=== PATIENT | female | born 1995 | race Caucasian/White ===

== ENCOUNTER 2020-09-13 09:49 | Outpatient (REF) | payer OTHER, SELFPAY ==
[2020-09-13 11:39] LABS: MANUAL DIFF FLAG NO
[2020-09-13 12:02] LABS: Basophils Percent Auto 0.4 % (0-2); Eosinophils Absolute Auto 0.1 X10*3/uL (0.0-0.4); Eosinophils Percent Auto 1.3 % (0-4); Hematocrit 39.4 % (37-47); Hemoglobin 12.7 g/dl (12.0-16.0); Imm Gran Abs Auto 0.02 X10*3/uL (0.00-0.03); Imm Gran Pct Auto 0.2 % (0.0-0.4); Lymphocytes Absolute Auto 3.4 X10*3/uL (1.2-4.9); Lymphocytes Percent Auto 38.1 % (20-40); Mean Corpuscular HGB Conc 32.2 g/dl (31.0-35.0); Mean Corpuscular Hemoglobin 28.5 pg (27.0-33.0); Mean Corpuscular Volume 88.3 fL (80-98); Mean Platelet Volume 10.4 fL (9.4-12.3); Monocytes Absolute Auto 0.6 X10*3/uL (0.1-1.2); Monocytes Percent Auto 6.7 % (2-11); Neutrophils Absolute Auto 4.7 X10*3/uL (2.0-8.3); Neutrophils Percent Auto 53.3 % (45-73); Platelet Count 364 X10*3/uL (160-400); Red Blood Count 4.46 X10*6/uL (4.20-5.50); Red Cell Distribution Width 13.2 % (11.0-16.0); White Blood Count 8.9 X10*3/uL (4.8-10.8)
[2020-09-13 12:24] LABS: TSH reflex Free T4 1.46 uIU/mL (0.32-4.0); Vitamin D 25-OH Total 31.1 ng/mL (>30)
[2020-09-13 12:41] LABS: Alanine Aminotransferase 15 U/L (0-31); Anion Gap 13 (12-20); Aspartate Amino Transferase 16 U/L (5-31); Blood Urea Nitrogen 11 mg/dL (9-16); Calcium 9.5 mg/dL (8.4-10.2); Carbon Dioxide 26 mmol/L (22-29); Chloride 105 mmol/L (96-108); Cholesterol 167 mg/dL; Estimated Glomerular Filt Rate > 60; Glucose Fasting 106 mg/dL (60-99); HDL Cholesterol 43 mg/dL; LDL Cholesterol Calculated 92 mg/dl; Potassium 4.7 mmol/L (3.3-5.1); Sodium 139 mmol/L (135-145); Triglycerides 163 mg/dL
== END 2020-09-13 09:50 | disposition home or self-care (01) ==
LOC: HO.HMGCLDS 09:49
PROVIDERS: PCP Internal Medicine; Visit Provider Internal Medicine
DX: Z00.01 Encounter for general adult medical examination with abnormal findings (principal); R12 Heartburn; E66.01 Morbid (severe) obesity due to excess calories; R41.840 Attention and concentration deficit; F41.8 Other specified anxiety disorders; E55.9 Vitamin D deficiency, unspecified; I10 Essential (primary) hypertension
CPT/HCPCS: 36415; 80048; 80061; 82306; 84443; 84450; 84460; 85025

== ENCOUNTER 2020-11-17 11:22 | Outpatient (REF) | payer OTHER, SELFPAY ==
--- NOTE | ~2020-11-17 | US_ITS ---
EXAMINATION: US SOFT TISSUE OF THE NECK CLINICAL INFORMATION: Localized mass/lump, left posterior neck. COMPARISON: None TECHNIQUE: Linear transducer grayscale and color Doppler examination of the area behind left ear, just under hairline. FINDINGS: In the region of the patient's palpable findings there is a subcutaneous lymph node measuring 1.3 x 1.3 x 0.4 cm with a normal fatty hilum. No additional soft tissue mass or fluid collection. No inflammatory change. US/US soft tiss head and/or neck IMPRESSION: Minimally prominent lymph node in the region of the patient's palpable findings.
== END 2020-11-17 11:23 | disposition home or self-care (01) ==
LOC: HO.HMGCX 11:22
PROVIDERS: PCP Internal Medicine; Visit Provider Internal Medicine
DX: R22.1 Localized swelling, mass and lump, neck (principal)
CPT/HCPCS: 76536

== ENCOUNTER 2021-05-08 09:50 | Outpatient (REF) | payer OTHER, SELFPAY ==
[2021-05-08 15:51] LABS: CT PCR NOT DETECTED (Not Detect.); NG PCR NOT DETECTED (Not Detect.)
[2021-05-09 15:48] LABS: BV Int Neg Control Negative (Negative); BV Int Pos Control Positive (Positive)
== END 2021-05-08 09:51 | disposition home or self-care (01) ==
LOC: HO.LAB 09:50
PROVIDERS: Visit Provider Advanced Practice Midwife
DX: Z01.419 Encounter for gynecological examination (general) (routine) without abnormal findings (principal); E66.01 Morbid (severe) obesity due to excess calories; N92.0 Excessive and frequent menstruation with regular cycle; Z20.2 Contact with and (suspected) exposure to infections with a predominantly sexual mode of transmission; Z79.899 Other long term (current) drug therapy
CPT/HCPCS: 87480; 87491; 87510; 87591; 87660; 88142

== ENCOUNTER 2022-07-13 08:18 | Outpatient (AMB) | payer OTHER, SELFPAY ==
--- NOTE | 2022-07-13 08:22 | MHC.PC.OV ---
Vital Signs 07/13/22 08:24 Height 5 ft 2 in Weight 258 lb 0.4 oz BMI 47.2 BP 122/80 Blood Pressure Location Lt brachial Position Sitting Pulse 69 Pulse Source Pulse Oximeter Temp 97.0 F Temp Source Skin Pulse Oximetry (%) 100 Oxygen Delivery Method Room Air Intake Visit Reasons: Physical exam Intake Note: Patient is here today for a physical. 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 Has chronic heartburn, takes famotidine, which has been helping.. Has history of mild intermittent asthma, has not had any flare-ups for the last several years now, not on any inhaler. She needs screening for tuberculosis for her work. Denies any history of TB in the past no exposure to anybody with tuberculosis. Complains of disturbed sleep rhythm, frequently wakes up, occasion has item go to sleep, has been told that she snores a lot and wakes up not feeling rested [facility] Medical History Annual visit for general adult medical examination with abnormal findings Chronic heartburn Depression with anxiety Difficulty concentrating Disturbed sleep rhythm Excessive daytime sleepiness Heavy menstrual bleeding History of depression Impaired fasting glucose Intermittent palpitations Labial lesion Mass of left side of neck Mild intermittent asthma Morbid obesity Nocturnal cough Screening-pulmonary TB Severe menstrual cramps Vitamin D deficiency Surgical History History of wisdom tooth extraction Family History Paternal Grandmother Diabetes mellitus Hypertension Maternal Grandfather Bronchial asthma Maternal Grandmother Colon cancer Paternal Aunt No problems noted. Mother Depression Mental health disorder Social History Housing: Apartment Alcohol intake: former Patient Tobacco Use Status: Never used Tobacco e-Cigarette/Vaping Use: Never Used Second Hand Smoke Exposure: No Substance Use Type: Marijuana service: No Current occupational status: unemployed Cognitive needs: No Hearing needs: No Vision needs: No Female Reproductive History Menstrual Age of Menarche: 10 Questionnaire PHQ-9 Over the last 2 weeks, how often have you been bothered by any of the following problems? 1. Little interest or pleasure in doing things: more than half the days 2. Feeling down, depressed, or hopeless: several days 3. Trouble falling or staying asleep, or sleeping too much: more than half the days 4. Feeling tired or having little energy: more than half the days 5. Poor appetite or overeating: more than half the days 6. Feeling bad about yourself - or that you are a failure or have let yourself or your family down: more than half the days 7. Trouble concentrating on things, such as reading the newspaper or watching television: not at all 8. Moving or speaking so slowly that other people could have noticed. Or the opposite - being so fidgety or restless that you have been moving around a lot more than usual: several days 9. 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 Andrew Hernandes, Valencia Mejia, Raghav Licea and colleagues, with an educational mhiaela from [employer]. Thrive Questionnaire Date Thrive assessed: 07/13/22 I am a: Patient What is your living situation today?: I have a steady place to live Within the past 12 months, did the food you bought not last and you didn't have the money to get more?: Never true Within the past 12 months, did you worry whether your food would run out before you got money to buy more?: Never true Do you have trouble paying for medicines?: No Do you have trouble getting transportation to medical appointments?: No Do you have trouble paying your heating and electricity bill?: No Do you have trouble taking care of your child, family member or friend?: No Do you have trouble with day-to-day activities such as bathing, preparing meals, shopping, managing finances, etc.?: No Are you currently unemployed and looking for a job?: Yes Are you interested in more education?: Yes AUDIT C Alcohol Use Questionnaire (AUDIT-C) 1. How often do you have a drink containing alcohol?: Never 3. How often do you have six or more drinks on one occasion?: Never Total Score: 0 KIARA-7 AMB Questionnaire KIARA-7 Date KIARA - 7 assessed: 07/13/22 Feeling nervous, anxious, or on edge: 2 = More than half the days Not being able to stop or control worryin = More than half the days Worrying too much about different things: 2 = More than half the days Trouble relaxin = More than half the days Being so restless that it is hard to sit still: 2 = More than half the days Becoming easily annoyed or irritable: 2 = More than half the days Feeling afraid as if something awful might happen: 2 = More than half the days Total KIRAA-7 score (0-4 normal; 5-9 mild; 10-14 moderate; 15-21 severe): 14 Source: Developed by Drs. Andrew Hernandes, Valencia Mejia, Raghav Licea and colleagues, with an educational mihaela from [employer]. KIARA-7 Assessment Billing KIARA-7 Assessment Tool: KIARA-7 Assessment 17911 ACT Questionnaire In the past 4 weeks, how much of the time did your asthma keep you from getting as much done at work, school or at home?: A little of the time During the past 4 weeks, how often have you had shortness of breath?: 1-2 times a week During the past 4 weeks, how often did your asthma symptoms wake you up at night or earlier than usual in the morning?: Once or twice per week During the past 4 weeks, how often have you had to use your rescue inhaler or nebulizer medication?: 2-3 times a week How would you rate your asthma control during the past 4 weeks?: Somewhat controlled Score: 18 Review of Systems Const Denies body aches, Denies fatigue, Denies fever(s), Denies headache(s) and Denies weakness Eyes Reports blurry vision, Denies eye discharge, Denies itchy eyes and Reports requires corrective lenses ENT Denies vertigo, Denies dizziness, Denies headache(s), Denies nasal congestion, Denies nasal discharge and Denies sore throat Card Denies chest pain, Denies lightheadedness, Denies palpitations and Denies dyspnea Resp Denies chest congestion, Denies cough, Denies dyspnea and Denies wheezing GI Denies abdominal pain, Denies melena, Denies bloating, Denies hematochezia, Denies change in bowel habits and Denies nausea Denies urinary frequency, Reports menorrhagia, Reports dysmenorrhea, Denies dysuria and Denies urinary urgency Musc Reports no additional complaints and Denies abnormal gait Skin/Breast Denies breast pain, Denies breast mass and Denies rash Neuro Denies abnormal gait, Denies vertigo, Denies dizziness, Denies headache(s), Denies focal weakness, Denies seizure-like activity and Denies weakness Psych Reports no additional complaints Endo Denies fatigue, Denies polydipsia, Denies polyuria and Denies palpitations Rolan/Lymph Denies easy bruising Aller/Immun Denies itchy eyes, Denies seasonal rhinorrhea and Denies wheezing Physical exam (Primary Care) Vital Signs: Last Vital Signs Temp 97.0 F 07/13/22 08:24 Pulse 69 07/13/22 08:24 BP 122/80 07/13/22 08:24 Pulse Ox 100 07/13/22 08:24 Oxygen Delivery Method Room Air 07/13/22 08:24 BMI result Body Mass Index 47.2 BMI Assessment/Plan discussion: High BMI High, discussed plan: lifestyle, weight reduction and physical activity Tobacco/Smoking Status: Tobacco use Status Tobacco use date assessed 07/13/22 07/13/22 08:25 Patient Tobacco Use Status Never used Tobacco 07/13/22 08:22 e-Cigarette/Vaping Use Never Used 07/13/22 08:22 PHQ-9: PHQ-9 Score PHQ-9: Total score 16 07/13/22 09:51 Depression Screening Interpretation: Positive Depression Screening Follow-up: Existing condition, Community Mental Health Worker F/U and Declines treatment (Does not want diet take any medications at present time and declines counseling) Thrive Assessment: Date of Thrive Assessment Date Thrive assessed 07/13/22 07/13/22 08:25 Const Other: Obese, alert, oriented x3, no acute cardiorespiratory distress, ambulatory with normal gait General: cooperative, comfortable and no acute distress Nutritional Appearance: obese morbidly obese Orientation/consciousness: patient oriented x3 [facility] Head: Yes normocephalic Ears: hearing grossly normal bilaterally, external ears normal, TM's normal bilaterally and EAC's normal General nose exam: Normal external nose present and No nasal discharge present Face and sinus: Yes face symmetric Mouth: Normal oral and palatal mucosa present, tongue normal, oropharynx normal and moist mucous membranes Eyes General: appearance normal, both eyes and all related structures Pupils: Equal, round and reactive pupils present EOM: EOMs intact bilaterally Chest Chest palpation & inspection: normal inspection of the chest and normal palpation of entire chest wall Breast/axilla palpation: normal palpation of the breasts and normal palpation of the axillae Resp Effort & Inspection: normal respiratory effort and able to speak in complete sentences Auscultation: clear to auscultation bilaterally Cardio Rate: regular rate Rhythm: regular rhythm Heart sounds: S1 normal heart sound present and S2 normal heart sound present GI Inspection: Yes Abdominal panniculus present and Yes obesity Palpation (GI): Soft to palpation, nontender, no guarding and no masses Auscultation: normal bowel sounds General: Yes no CVA tenderness and Yes deferred (Currently being seen by ELVIRA [place]) Back/Spine/Pelvis Back: no CVA tenderness and No back tenderness Skin General skin exam: no rashes or lesions noted Neuro General: patient oriented x3, gait normal, tone normal, moves all extremities and Normal light touch and pain sensation Cranial nerves: Yes Equal, round and reactive pupils present Cognition (Neuro): normal cognition Gait exam (Neuro): Normal gait present Extrem General: Yes normal to inspection, Yes full ROM, Yes no joint enlargement, Yes no clubbing, cyanosis or edema and Yes normal gait Psych Appearance: grossly normal and well kempt Mental Status: mental status grossly normal Speech and movement: Normal speech and movement present Affect: normal affect Attitude: cooperative Immunizations Boostrix Tdap Performing Provider: Faby Lam MD Administered by: NATHANIEL Ho on 07/13/22 09:51 Dose Route Admin Location Lot Number Expiration Date 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 Recommended focusing on improving your health instead of dieting. : Eat Mediterranean diet, limit foods high in fat, sugar, and calories, eat slowly, pay attention to portion sizes, plan your meals ahead of time, start regular physical activity 150 minutes of moderate intensity exercise or 90 minutes/week of vigorous exercise and increase water intake. (3) Impaired fasting glucose: Code(s): R73.01 - Impaired fasting glucose Plan: Will check fasting blood sugar level (4) Annual visit for general adult medical examination with abnormal findings: Code(s): Z00.01 - Encounter for general adult medical examination with abnormal findings Plan: Will check appropriate labs. Recommended dental visit every 6 months and regular eye exams, at least every 2 years. Take adequate calcium in diet and vitamin-D 3 at 2000 IU per cap once a day, in addition to weight-bearing exercises to help maintain good muscle tone and weight control. Instructed to do self-breast exam, and recommended to get yearly mammogram, starting at age 40. Immunization information provided: Yearly flu vaccine, shingles vaccine starting at age 50, at age 65 to start getting Prevnar 13 followed 1 year later by Pneumovax 23. Colonoscopy (5) Intermittent palpitations: Code(s): R00.2 - Palpitations (6) Screening-pulmonary TB: Code(s): Z11.1 - Encounter for screening for respiratory tuberculosis Plan: T spot ordered (7) Nocturnal cough: Code(s): R05.8 - Other specified cough Plan: Likely heartburn, advised to take famotidine at night before bed, avoid triggers for heartburn such as and hematometra saw scar fried foods crease to foods, eat a light supper, do not lie down right away after eating (8) Mild intermittent asthma: Code(s): J45.20 - Mild intermittent asthma, uncomplicated Plan: Has not had any flare-ups of her asthma for several years now. (9) Excessive daytime sleepiness: Code(s): G47.19 - Other hypersomnia Plan: Referral for evaluation of obstructive sleep apnea. (10) Disturbed sleep rhythm: Code(s): G47.20 - Circadian rhythm sleep disorder, unspecified type Plan: Referred to sleep clinic (11) Depression with anxiety: Code(s): F41.8 - Other specified anxiety disorders Plan: Patient states that she has been dealing with this for a long time no does not want to start any medications or referral for counseling. Has tried them in the past which has not help, Orders: Orders Glucose Fasting 07/13/22 R73.01 - Impaired fasting glucose, R12 - Heartburn, E66.01 - Morbid (severe) obesity due to excess calories, Z00.01 - Encounter for general adult medical examination with abnormal findings Hemoglobin A1c 07/13/22 R73.01 - Impaired fasting glucose, R12 - Heartburn, E66.01 - Morbid (severe) obesity due to excess calories, Z00.01 - Encounter for general adult medical examination with abnormal findings Lipid Panel 07/13/22 R73.01 - Impaired fasting glucose, R12 - Heartburn, E66.01 - Morbid (severe) obesity due to excess calories, Z00.01 - Encounter for general adult medical examination with abnormal findings Vitamin D 25-OH Total 07/13/22 R73.01 - Impaired fasting glucose, R12 - Heartburn, E66.01 - Morbid (severe) obesity due to excess calories, Z00.01 - Encounter for general adult medical examination with abnormal findings TSH reflex Free T4 07/13/22 R00.2 - Palpitations, Z00.01 - Encounter for general adult medical examination with abnormal findings Complete Blood Count Auto Diff 07/13/22 R00.2 - Palpitations, Z00.01 - Encounter for general adult medical examination with abnormal findings T Spot TB 07/13/22 Z11.1 - Encounter for screening for respiratory tuberculosis TDaP Immunization 07/13/22 Z23 - Encounter for immunization Referrals Sleep Medicine Referral R05.8 - Other specified cough, G47.19 - Other hypersomnia, G47.20 - Circadian rhythm sleep disorder, unspecified type Medications: Refilled famotidine 40 mg PO DAILY 30 tabs 2RF R12 - Heartburn Coding Level of Care Code Est Pt Prev Care 18-39y(53230) Diagnoses Chronic heartburn R12 Morbid obesity E66.01 Impaired fasting glucose R73.01 Annual visit for general adult medical examination with abnormal findings Z00.01 Intermittent palpitations R00.2 Screening-pulmonary TB Z11.1 Nocturnal cough R05.8 Mild intermittent asthma J45.20 Excessive daytime sleepiness G47.19 Disturbed sleep rhythm G47.20 Depression with anxiety F41.8 Additional Codes KIARA-7 Assessment Billing - KIARA-7 Assessment Tool: KIARA-7 Assessment 02110 ([id number])
[2022-07-13 08:24] VITALS: BP 122/80; PULSE 69; TEMP 36.1; O2SAT 100; BMI 47.2
== END 2022-07-13 09:43 | disposition home or self-care (01) ==
LOC: HO.HMGC 08:18
PROVIDERS: PCP Internal Medicine; Visit Provider Internal Medicine
DX: Z00.01 Encounter for general adult medical examination with abnormal findings (principal); E66.01 Morbid (severe) obesity due to excess calories; J45.20 Mild intermittent asthma, uncomplicated; Z68.42 Body mass index [BMI] 45.0-49.9, adult; F41.8 Other specified anxiety disorders; R12 Heartburn; R73.01 Impaired fasting glucose; R00.2 Palpitations; R05.8 Other specified cough; G47.19 Other hypersomnia; Z11.1 Encounter for screening for respiratory tuberculosis; G47.20 Circadian rhythm sleep disorder, unspecified type; Z23 Encounter for immunization
CPT/HCPCS: 90471; 90715; 99395

== ENCOUNTER 2022-07-13 09:46 | Outpatient (REF) | payer OTHER, SELFPAY ==
[2022-07-13 11:42] LABS: MANUAL DIFF FLAG NO
[2022-07-13 11:55] LABS: Basophils Percent Auto 0.5 % (0-2); Eosinophils Absolute Auto 0.1 X10*3/uL (0.0-0.4); Hemoglobin 12.8 g/dl (12.0-16.0); Imm Gran Abs Auto 0.01 X10*3/uL (0.00-0.03); Imm Gran Pct Auto 0.1 % (0.0-0.4); Lymphocytes Absolute Auto 2.8 X10*3/uL (1.2-4.9); Lymphocytes Percent Auto 38.6 % (20-40); Mean Corpuscular HGB Conc 32.8 g/dl (31.0-35.0); Mean Corpuscular Hemoglobin 28.3 pg (27.0-33.0); Mean Corpuscular Volume 86.1 fL (80.0-98.0); Mean Platelet Volume 10.4 fL (9.4-12.3); Monocytes Absolute Auto 0.5 X10*3/uL (0.1-1.2); Monocytes Percent Auto 6.8 % (2-11); Neutrophils Absolute Auto 3.9 x10*3/uL (2.0-8.3); Platelet Count 346 X10*3/uL (160-400); Red Blood Count 4.53 X10*6/uL (4.20-5.50); Red Cell Distribution Width 13.3 % (11.0-16.0); White Blood Count 7.4 X10*3/uL (4.8-10.8)
[2022-07-13 12:09] LABS: Estimated Average Glucose 117 mg/dL; Hemoglobin A1c % 5.7 %
[2022-07-13 12:27] LABS: Cholesterol 162 mg/dL; Glucose Fasting 111 mg/dL (60-99); HDL Cholesterol 49 mg/dL; LDL Cholesterol Calculated 91 mg/dl; TSH reflex Free T4 1.77 uIU/mL (0.32-4.0); Triglycerides 111 mg/dL; Vitamin D 25-OH Total 27.1 ng/mL (>30)
[2022-07-15 22:43] LABS: TS Negative Control Passed; TS Panel A 0; TS Panel B 0; TS Positive Control Passed; TSpotTB Negative (Negative)
== END 2022-07-13 09:47 | disposition home or self-care (01) ==
LOC: HO.HMGCLDS 09:46
PROVIDERS: PCP Internal Medicine; Visit Provider Internal Medicine
DX: Z00.01 Encounter for general adult medical examination with abnormal findings (principal); R73.01 Impaired fasting glucose; R12 Heartburn; E66.01 Morbid (severe) obesity due to excess calories; R00.2 Palpitations; Z11.1 Encounter for screening for respiratory tuberculosis
CPT/HCPCS: 36415; 80061; 82306; 82947; 83036; 84443; 85025; 86481

== ENCOUNTER → 2022-09-11 07:44 | Outpatient (BNVA) | payer OTHER, SELFPAY | PROVIDERS: PCP Internal Medicine; Visit Provider Nurse Practitioner Family | DX: R06.83 Snoring (principal); G47.20 Circadian rhythm sleep disorder, unspecified type; G47.19 Other hypersomnia; E66.01 Morbid (severe) obesity due to excess calories; Z68.42 Body mass index [BMI] 45.0-49.9, adult | CPT/HCPCS: 99202 ==

== ENCOUNTER → 2022-10-11 10:48 | Outpatient (REF) | payer OTHER, SELFPAY | LOC: HO.SL 10:48 | PROVIDERS: PCP Internal Medicine; Visit Provider Nurse Practitioner Family | DX: G47.19 Other hypersomnia (principal); R06.83 Snoring; E66.01 Morbid (severe) obesity due to excess calories | CPT/HCPCS: 95806 ==

== ENCOUNTER → 2022-10-11 11:01 | Outpatient (BNV) | payer OTHER, SELFPAY | PROVIDERS: PCP Internal Medicine; Visit Provider Psychiatry & Neurology Neurology | DX: R06.83 Snoring (principal) | CPT/HCPCS: 95806 ==

== ENCOUNTER 2023-01-15 11:45 | Outpatient (AMB) | payer OTHER, SELFPAY ==
[2023-01-15 12:10] VITALS: BP 100/60; PULSE 68; O2SAT 100; BMI 46.3
--- NOTE | 2023-01-15 12:10 | MHC.PC.OV ---
Vital Signs 01/15/23 12:10 Height 5 ft 2 in Weight 253 lb 6 oz BMI 46.3 BP 100/60 Blood Pressure Location Lt brachial Position Sitting Pulse 68 Pulse Source Pulse Oximeter Pulse Oximetry (%) 100 Oxygen Delivery Method Room Air Intake Visit Reasons: Chest discomfort upon excerise Intake Note: pt says she gets sharp pain when she exercise and says it feels like she can not pull in enough air she says she can control her breathing , but the pain and discomfort is still there. Allergies No Known Allergies Allergy (Verified 03/13/23 11:06) Medication List - Last Reconciled 01/15/23 by Faby Lam MD cholecalciferol (vitamin D3) 125 mcg PO DAILY famotidine 40 mg PO DAILY Tobacco use date assessed: 01/15/23 Dental Screening Dental Screen Date: 01/15/23 Did you have a dental visit in the last 12 months?: Yes Did you have a dental problem in the last 6 months where you did not have access to dental care?: No Was dental information given to patient?: Patient has dentist HPI Chest discomfort upon excerise HPI Details 27-year-old lady here today complaining of sharp pains on her middle of her chest when she exercises , repeat like she has to catch her breath every time. No history of trauma or injury. Denies any accompanying headache or palpitation. She has mild intermittent asthma currently using only albuterol inhaler as needed for episodes of wheezing and bronchospasm. She also has been having intermittent episodes of heartburn. Currently taking famotidine 40 mg daily which has been controlling it. Complains of episodes of anhedonia and low mood. Has been wearing a lot lately which has been impacting her sleep. [facility] Medical History (Updated 01/15/23 @ 12:48 by Faby Lam MD) Chest wall pain, chronic Disturbed sleep rhythm Excessive daytime sleepiness Mild intermittent asthma Nocturnal cough Screening-pulmonary TB Intermittent palpitations Annual visit for general adult medical examination with abnormal findings Impaired fasting glucose Mass of left side of neck Labial lesion Severe menstrual cramps Heavy menstrual bleeding Chronic heartburn Morbid obesity Difficulty concentrating Depression with anxiety History of depression Vitamin D deficiency Surgical History History of wisdom tooth extraction Family History Paternal Grandmother Diabetes mellitus Hypertension Maternal Grandfather Bronchial asthma Maternal Grandmother Colon cancer Paternal Aunt No problems noted. Mother Depression Mental health disorder Social History (Updated 02/13/23 @ 08:19 by Rubi Davis CMA) Housing: Apartment Alcohol intake: former Patient Tobacco Use Status: Never used Tobacco e-Cigarette/Vaping Use: Never Used Second Hand Smoke Exposure: No Substance Use Type: Marijuana service: No Current occupational status: unemployed Cognitive needs: No Hearing needs: No Vision needs: No Female Reproductive History Menstrual Age of Menarche: 10 Questionnaire Thrive Questionnaire Date Thrive assessed: 07/13/22 KIARA-7 AMB Questionnaire KIARA-7 Date KIARA - 7 assessed: 07/13/22 Source: Developed by Drs. Andrew Hernandes, Valencia Mejia, Raghav Licea and colleagues, with an educational mihaela from [employer]. Review of Systems Const All systems reviewed & are unremarkable except as noted in HPI and below Physical exam (Primary Care) Vital Signs: Last Vital Signs Pulse 68 01/15/23 12:10 BP 100/60 01/15/23 12:10 Pulse Ox 100 01/15/23 12:10 Oxygen Delivery Method Room Air 01/15/23 12:10 BMI result Body Mass Index 46.3 Tobacco/Smoking Status: Tobacco use Status Tobacco use date assessed 01/15/23 01/15/23 12:17 Patient Tobacco Use Status Never used Tobacco 01/15/23 12:17 e-Cigarette/Vaping Use Never Used 01/15/23 12:17 Thrive Assessment: Date of Thrive Assessment Date Thrive assessed 07/13/22 01/15/23 12:17 Office Procedures Flu Questionnaire Does the patient have a severe egg allergy?: No Does the patient have severe life threatening allergies?: No Does the patient have a fever or illness today?: No Has the patient ever had Guillain-Lovilia Syndrome?: No Has the patient ever had any past reaction to a flu shot?: No Immunizations flu vacc [id number] 6mos up(PF) 60 mcg(15 mcgx4)/0.5 mL IM syringe Performing Provider: Faby Lam MD Performing Location: [facility] Administered by: Daniella Calvo CMA on 01/15/23 12:49 Dose Route Admin Location Dispensed Lot Number Expiration Date 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 VIS Given Date VIS Provided VIS Publication Date 01/15/23 Single Vaccine 20 Eligibility Eligibility Date Funding Source Not [facility] Eligible 01/15/23 Private Assessment and Plan Assessment & Plan (1) Depression with anxiety: Code(s): F41.8 - Other specified anxiety disorders Plan: Started on buspirone 5 mg 1 tablet 3 times a day. (2) Chest wall pain, chronic: Code(s): R07.89 - Other chest pain; G89.29 - Other chronic pain Plan: EKG done today showed normal sinus rhythm with no acute ST-T changes. Chest pain likely musculoskeletal in origin. (3) Chronic heartburn: Code(s): R12 - Heartburn Plan: Continue with famotidine, avoidance of triggers for heartburn (4) Needs flu shot: Code(s): Z23 - Encounter for immunization Plan: Flu vaccine given today Orders: Orders Influenza [id number] Immunization 01/15/23 Z23 - Encounter for immunization AMB EKG-In Office 01/15/23 R07.89 - Other chest pain, G89.29 - Other chronic pain, Z13.6 - Encounter for screening for cardiovascular disorders Medications: New diclofenac sodium 1% apply to single elbow, wrist or hand; for hand includes palm/fingers/back of hand 2 grams topical QID PRN 100 grams 0RF pain buspirone 5 mg PO TID 90 tabs 0RF F41.8 - Other specified anxiety disorders Refilled famotidine 40 mg PO DAILY 30 tabs 5RF R12 - Heartburn Coding Level of Care Code Est Pt Level 3 (51380) Diagnoses Depression with anxiety F41.8 Chest wall pain, chronic R07.89; G89.29 Chronic heartburn R12 Needs flu shot Z23
== END 2023-01-15 14:52 | disposition home or self-care (01) ==
PROVIDERS: PCP Internal Medicine; Visit Provider Internal Medicine
DX: Z23 Encounter for immunization (principal)
CPT/HCPCS: 90471; 90686

== ENCOUNTER 2023-02-13 08:12 | Outpatient (AMB) | payer OTHER, SELFPAY ==
--- NOTE | 2023-02-13 08:17 | A.OFFVIS_ITS ---
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 The home sleep study was inconclusive. Pt states that she could not sleep with the equipment, it kept falling, and she stayed awake all night. In lab sleep study ordered, but patient had anxiety attack and could not do the PSG sleep study. She is on buspirone 5 mg TID and her anxiety has been better. Pt states that she sleeps a little longer, 7-8 hrs. She will call to schedule for PSG sleep study. [facility] Medical History (Updated 01/15/23 @ 12:48 by Faby Lam MD) Chest wall pain, chronic Disturbed sleep rhythm Excessive daytime sleepiness Mild intermittent asthma Nocturnal cough Screening-pulmonary TB Intermittent palpitations Annual visit for general adult medical examination with abnormal findings Impaired fasting glucose Mass of left side of neck Labial lesion Severe menstrual cramps Heavy menstrual bleeding Chronic heartburn Morbid obesity Difficulty concentrating Depression with anxiety History of depression Vitamin D deficiency Surgical History History of wisdom tooth extraction Family History Paternal Grandmother Diabetes mellitus Hypertension Maternal Grandfather Bronchial asthma Maternal Grandmother Colon cancer Paternal Aunt No problems noted. Mother Depression Mental health disorder Social History (Updated 02/13/23 @ 08:19 by Rubi Davis CMA) Housing: Apartment Alcohol intake: former Patient Tobacco Use Status: Never used Tobacco e-Cigarette/Vaping Use: Never Used Second Hand Smoke Exposure: No Substance Use Type: Marijuana service: No Current occupational status: unemployed Cognitive needs: No Hearing needs: No Vision needs: No Female Reproductive History Menstrual Age of Menarche: 10 Review of Systems Const All systems reviewed & are unremarkable except as noted in HPI and below ENT Reports Normal hearing present Neuro Reports Normal hearing present Physical Exam Vital Signs: Last Vital Signs Pulse 75 02/13/23 08:19 BP 120/86 02/13/23 08:19 Pulse Ox 98 02/13/23 08:19 Oxygen Delivery Method Room Air 02/13/23 08:19 Const General: cooperative Nutritional Appearance: obese Orientation/consciousness: patient oriented x3 Limitations: no limitations Neck Neck: Yes full ROM and Yes supple Resp Effort & Inspection: normal respiratory effort and able to speak in complete sentences Neuro General: patient oriented x3, gait normal and moves all extremities Cranial nerves: Yes Bilaterally intact EOM present, Yes Normal facial strength present, Yes Midline tongue present, Yes Symmetric palate elevation present, Yes Normal hearing present, Yes Ability to bilaterally rotate head present and Yes Ability to bilaterally elevate shoulders present Cognition (Neuro): normal cognition Gait exam (Neuro): Normal gait present Motor exam (neuro): 5/5 motor strength present throughout, Pronator motor function not present and no tremor noted Psych Appearance: grossly normal Mental Status: mental status grossly normal Speech and movement: Normal speech and movement present Affect: normal affect Attitude: cooperative Assessment & Plan Assessment & Plan (1) Snoring: Code(s): R06.83 - Snoring (2) Disturbed sleep rhythm: Code(s): G47.20 - Circadian rhythm sleep disorder, unspecified type (3) Excessive daytime sleepiness: Code(s): G47.19 - Other hypersomnia (4) Morbid obesity: Code(s): E66.01 - Morbid (severe) obesity due to excess calories Plan Pt is advised to undergo in lab sleep study to assess for sleep apnea. Will f/u with pt after study to discuss results and appropriate treatment opti ons. Sleep hygiene education provided. Limit electronic use before bedtime and in the middle of night. Advised patient to limit caffeine intake after 2 pm. Try magnesium 400 mg q HS for muscle spasm. Wt reduction advised. Pt to call with any worsening concerns or questions. Coding Level of Care Code Est Pt Level 3 (52088) Diagnoses Snoring R06.83 Disturbed sleep rhythm G47.20 Excessive daytime sleepiness G47.19 Morbid obesity E66.01
[2023-02-13 08:19] VITALS: BP 120/86; PULSE 75; O2SAT 98
== END 2023-02-13 08:33 | disposition home or self-care (01) ==
PROVIDERS: PCP Internal Medicine; Visit Provider Nurse Practitioner Family
DX: R06.83 Snoring (principal); G47.20 Circadian rhythm sleep disorder, unspecified type; G47.19 Other hypersomnia; E66.01 Morbid (severe) obesity due to excess calories
CPT/HCPCS: 99213

== ENCOUNTER → 2023-02-13 08:12 | Outpatient (BNVA) | payer OTHER, SELFPAY | PROVIDERS: PCP Internal Medicine; Visit Provider Nurse Practitioner Family | DX: G47.20 Circadian rhythm sleep disorder, unspecified type (principal); R06.83 Snoring; G47.19 Other hypersomnia; E66.01 Morbid (severe) obesity due to excess calories | CPT/HCPCS: 99212 ==

== ENCOUNTER → 2023-03-05 20:30 | Outpatient (BNV) | payer OTHER, SELFPAY | PROVIDERS: PCP Internal Medicine; Visit Provider Psychiatry & Neurology Neurology | DX: R06.83 Snoring (principal) | CPT/HCPCS: 95810 ==

== ENCOUNTER → 2023-03-05 20:30 | Outpatient (REF) | payer OTHER, SELFPAY | LOC: HO.SL 20:30 | PROVIDERS: PCP Internal Medicine; Visit Provider Nurse Practitioner Family | DX: G47.20 Circadian rhythm sleep disorder, unspecified type (principal); R06.83 Snoring; G47.19 Other hypersomnia; E66.01 Morbid (severe) obesity due to excess calories | CPT/HCPCS: 95810 ==

== ENCOUNTER 2023-03-13 10:13 | Outpatient (AMB) | payer OTHER, SELFPAY ==
[2023-03-13 10:45] VITALS: BP 108/64; PULSE 58; O2SAT 100; BMI 47.8
--- NOTE | 2023-03-13 10:45 | MHC.PC.OV ---
Vital Signs 03/13/23 10:45 Height 5 ft 2 in Weight 261 lb 6 oz BMI 47.8 BP 108/64 Blood Pressure Location Lt brachial Position Sitting Pulse 58 Pulse Source Pulse Oximeter Pulse Oximetry (%) 100 Oxygen Delivery Method Room Air Intake Visit Reasons: 1 month follow up Intake Note: Pt is here for a 1 month follow up after starting anxiety medication Allergies No Known Allergies Allergy (Verified 03/13/23 11:06) Medication List - Last Reconciled 03/13/23 by Faby Lam MD albuterol sulfate 90 mcg/actuation (Ventolin HFA) inhalation cholecalciferol (vitamin D3) 125 mcg PO DAILY diclofenac sodium 1% 2 grams topical QID PRN famotidine 40 mg PO DAILY Tobacco use date assessed: 03/13/23 Dental Screening Dental Screen Date: 03/13/23 Did you have a dental visit in the last 12 months?: Yes Did you have a dental problem in the last 6 months where you did not have access to dental care?: No Was dental information given to patient?: Patient has dentist HPI 1 month follow up HPI Details 27-year-old lady here today for follow-up on her anxiety disorder. She has been started on buspirone on last visit but patient states it has not really been helping. Has already started seeing a therapist at [facility]. Has been complaining of intermittent episodes of pain in her right upper quadrant and epigastric area, usually after food intake. None radiation of pain reported. Denies any accompanying nausea vomiting, no alteration in bowel habits, no melena or hematochezia reported. Patient states that she has strong family history for GI cancer, father from anal cancer in his 30s, and paternal grandmother also was diagnosed to have colon cancer in her late 40s. [facility] Medical History (Updated 05/06/23 @ 04:45 by Faby Lam MD) Anxiety and depression Depression Family history of colon cancer Chest wall pain, chronic Disturbed sleep rhythm Excessive daytime sleepiness Mild intermittent asthma Nocturnal cough Screening-pulmonary TB Intermittent palpitations Annual visit for general adult medical examination with abnormal findings Impaired fasting glucose Mass of left side of neck Labial lesion Severe menstrual cramps Heavy menstrual bleeding Chronic heartburn Morbid obesity Difficulty concentrating Depression with anxiety History of depression Vitamin D deficiency Surgical History History of wisdom tooth extraction Family History Paternal Grandmother Diabetes mellitus Hypertension Maternal Grandfather Bronchial asthma Maternal Grandmother Colon cancer Paternal Aunt No problems noted. Mother Depression Mental health disorder Social History Housing: Apartment Alcohol intake: former Patient Tobacco Use Status: Never used Tobacco e-Cigarette/Vaping Use: Never Used Second Hand Smoke Exposure: No Substance Use Type: Marijuana service: No Current occupational status: unemployed Cognitive needs: No Hearing needs: No Vision needs: No Female Reproductive History Menstrual Age of Menarche: 10 Questionnaire PHQ-9 Over the last 2 weeks, how often have you been bothered by any of the following problems? 1. Little interest or pleasure in doing things: several days 2. Feeling down, depressed, or hopeless: more than half the days 3. Trouble falling or staying asleep, or sleeping too much: several days 4. Feeling tired or having little energy: several days 5. Poor appetite or overeating: not at all 6. Feeling bad about yourself - or that you are a failure or have let yourself or your family down: several days 7. Trouble concentrating on things, such as reading the newspaper or watching television: several days 8. Moving or speaking so slowly that other people could have noticed. Or the opposite - being so fidgety or restless that you have been moving around a lot more than usual: not at all 9. Thoughts that you would be better off or of hurting yourself in some way: not at all Total score: 7 Depression Screening Interpretation: Positive Depression Screening Follow-up: Existing condition, In treatment, New Medication prescribed and Community Mental Health Worker F/U Depression Screening Done: Yes 00541 - PHQ-9 Billing: Yes Source: Developed by Drs. Andrew Hernandes, Valencia Mejia, Raghav Licea and colleagues, with an educational mihaela from [employer]. Thrive Questionnaire Date Thrive assessed: 07/13/22 KIARA-7 AMB Questionnaire KIARA-7 Date KIARA - 7 assessed: 07/13/22 Feeling nervous, anxious, or on edge: 1 = Several days Not being able to stop or control worryin = Several days Worrying too much about different things: 1 = Several days Trouble relaxin = Not at all Being so restless that it is hard to sit still: 0 = Not at all Becoming easily annoyed or irritable: 0 = Not at all Feeling afraid as if something awful might happen: 0 = Not at all Total KIARA-7 score (0-4 normal; 5-9 mild; 10-14 moderate; 15-21 severe): 3 Source: Developed by Drs. Andrew Hernandes, Valencia Mejia, Raghav Licea and colleagues, with an educational mihaela from [employer]. KIARA-7 Assessment Billing KIARA-7 Assessment Tool: KIARA-7 Assessment 38506 Review of Systems Const All systems reviewed & are unremarkable except as noted in HPI and below Physical exam (Primary Care) Vital Signs: Last Vital Signs Pulse 58 03/13/23 10:45 BP 108/64 03/13/23 10:45 Pulse Ox 100 03/13/23 10:45 Oxygen Delivery Method Room Air 03/13/23 10:45 BMI result Body Mass Index 47.8 BMI Assessment/Plan discussion: High BMI High, discussed plan: lifestyle, weight reduction and physical activity Tobacco/Smoking Status: Tobacco use Status Tobacco use date assessed 03/13/23 03/13/23 10:51 Patient Tobacco Use Status Never used Tobacco 03/13/23 10:46 e-Cigarette/Vaping Use Never Used 03/13/23 10:46 PHQ-9: PHQ-9 Score PHQ-9: Total score 7 03/13/23 11:27 Depression Screening Interpretation: Positive Depression Screening Follow-up: Existing condition, In treatment, New Medication prescribed and Community Mental Health Worker F/U Thrive Assessment: Date of Thrive Assessment Date Thrive assessed 07/13/22 03/13/23 10:46 Const Other: Obese, alert, oriented x3, no acute cardiorespiratory distress, ambulatory with normal gait General: cooperative, comfortable and no acute distress Nutritional Appearance: obese morbidly obese Orientation/consciousness: patient oriented x3 HENMT Head: Yes normocephalic Ears: hearing grossly normal bilaterally, external ears normal, TM's normal bilaterally and EAC's normal General nose exam: Normal external nose present and No nasal discharge present Face and sinus: Yes face symmetric Mouth: Normal oral and palatal mucosa present, tongue normal, oropharynx normal and moist mucous membranes Eyes General: appearance normal, both eyes and all related structures Neck Neck: Yes full ROM, Yes no lymphadenopathy and Yes supple Thyroid: Thyroid normal Resp Effort & Inspection: normal respiratory effort and able to speak in complete sentences Auscultation: clear to auscultation bilaterally Cardio Rate: regular rate Rhythm: regular rhythm Heart sounds: S1 normal heart sound present and S2 normal heart sound present GI Inspection: Yes Abdominal panniculus present and Yes obesity Palpation (GI): Soft to palpation, Tenderness to palpation present (GI) in the epigastrum, in the RUQ and Hester's sign positive and no masses Auscultation: normal bowel sounds General: Yes no CVA tenderness and Yes deferred (Currently being seen by ELVIRA [place]) Back/Spine/Pelvis Back: no CVA tenderness and No back tenderness Neuro General: patient oriented x3, gait normal, tone normal, moves all extremities and Normal light touch and pain sensation Cognition (Neuro): normal cognition Gait exam (Neuro): Normal gait present Extrem General: Yes normal to inspection, Yes full ROM, Yes no joint enlargement, Yes no clubbing, cyanosis or edema and Yes normal gait Psych Appearance: grossly normal and well kempt Mental Status: mental status grossly normal Speech and movement: Normal speech and movement present Affect: normal affect Attitude: cooperative Assessment and Plan Assessment & Plan (1) Anxiety and depression: Code(s): F41.9 - Anxiety disorder, unspecified; F32.A - Depression, unspecified Plan: Sees psych wellness care for therapy. Discontinued buspirone, will start on sertraline 50 mg per tablet take half a tablet or 25 mg initially once a day in a.m. or p.m.. And then may increase dose to 50 mg on the 2nd week if necessary. Will see her back for follow-up in 4 week (2) Family history of colon cancer: Comment: father had anal cancer in his 30's maternal grandmother had colon cancer in her 40's Code(s): Z80.0 - Family history of malignant neoplasm of digestive organs Plan: Strong family history for early colon cancer, referred to GI for further evaluation (3) Right upper quadrant abdominal pain: Code(s): R10.11 - Right upper quadrant pain Plan: Ultrasound of abdomen (4) Chronic heartburn: Code(s): R12 - Heartburn Plan: Has been taking famotidine and tried [id number] omeprazole already with not much relief. Ultrasound of abdomen ordered, GI consult obtained Orders: Orders US abdomen complete 03/13/23 R10.11 - Right upper quadrant pain Referrals Gastroenterology Referral Z80.0 - Family history of malignant neoplasm of digestive organs, R12 - Heartburn Medications: New sertraline Initially take 25 mg or half a tablet once a day for the 1st week and then may increase dose to full dose of 50 mg once a day on the 2nd week. 50 mg PO DAILY 30 tabs 1RF Coding Level of Care Code Est Pt Level 4 (97624) Diagnoses Anxiety and depression F41.9; F32.A Family history of colon cancer Z80.0 Right upper quadrant abdominal pain R10.11 Chronic heartburn R12 Additional Codes KIARA-7 Assessment Billing - KIARA-7 Assessment Tool: KIARA-7 Assessment [id number] ([id number])
== END 2023-03-13 11:29 | disposition home or self-care (01) ==
PROVIDERS: PCP Internal Medicine; Visit Provider Internal Medicine
DX: R12 Heartburn (principal); F41.9 Anxiety disorder, unspecified; F32.A Depression, unspecified; Z80.0 Family history of malignant neoplasm of digestive organs; R10.11 Right upper quadrant pain
CPT/HCPCS: 96127; 99214

== ENCOUNTER 2023-03-25 09:49 | Outpatient (REF) | payer OTHER, SELFPAY ==
--- NOTE | ~2023-03-25 | US_ITS ---
EXAMINATION: US ABDOMEN COMPLETE CLINICAL INFORMATION: Right upper quadrant pain. Positive Hester's sign. COMPARISON: None available. TECHNIQUE: Real-time imaging of the abdominal viscera. FINDINGS: PANCREAS: Normal. ABDOMINAL AORTA: The proximal, mid, and distal segments are normal in caliber. INFERIOR VENA CAVA: Visualized portions are normal. LIVER: The liver is normal in size. The liver contour is normal. There is diffuse increased liver parenchymal echogenicity, consistent with hepatic steatosis. No focal hepatic lesion. There is no intrahepatic biliary duct dilatation seen. GALLBLADDER: Multiple gallstones are present, the largest measuring 2.2 cm and 1.9 cm. The gallbladder wall is mildly thickened at 0.4 cm. No pericholecystic fluid is present. The patient complains of mild tenderness when compressed over the gallbladder. COMMON BILE DUCT: Normal in caliber measuring 0.3 cm in diameter. RIGHT KIDNEY: Normal. No hydronephrosis. No renal calculi or focal parenchymal lesions. The kidney measures 11.8 cm in maximum dimension. LEFT KIDNEY: Normal. No hydronephrosis. No renal calculi or focal parenchymal lesions. The kidney measures 12.0 cm in maximum dimension. SPLEEN: Normal. The spleen measures 11.2 cm in maximum dimension. FREE FLUID: None. US/US abdomen complete IMPRESSION: 1. Cholelithiasis with mild gallbladder wall thickening and mild tenderness when compressed over the gallbladder. 2. Hepatic steatosis.
== END 2023-03-25 09:50 | disposition home or self-care (01) ==
LOC: HO.HMGCX 09:49
PROVIDERS: PCP Internal Medicine; Visit Provider Internal Medicine
DX: R10.11 Right upper quadrant pain (principal)
CPT/HCPCS: 76700

== ENCOUNTER 2023-05-14 12:30 | Outpatient (AMB) | payer OTHER, SELFPAY ==
--- NOTE | 2023-05-14 12:45 | MHC.OFFVIS ---
Intake Vital Signs 05/14/23 12:51 Height 5 ft 2 in Weight 249 lb BMI 45.5 BP 121/57 L Blood Pressure Location Lt brachial Position Sitting Pulse 68 Intake Visit Reasons: Heartburn Intake Note: Patient new consult for Heartburn. Patient cc: acid reflex with burning sensation, abdominal pain side to side with some bloating, occasional N/V, between diarrhea and constipation, and swallowing problem to solid food. 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 Describes frequent retrosternal burning with sour brash triggered by seltzer water, milk, chips etc. Assoc with nausea and vomiting. Stools fluctuate between soft and constipation. No blood in stool. Cannabis occ. No etOH. Frequent ibuprofen 600-1200 mg per day 2-3 times week. Mat grandmother: colon ca at 51. Father: anal ca in early 40s US Abd 03/2023: Gallstones wiht mild GB wall thickness. Seeing surg this week. [facility] Medical History (Updated 05/06/23 @ 14:25 by Faby Lam MD) Cholelithiasis Anxiety and depression Depression Family history of colon cancer Chest wall pain, chronic Disturbed sleep rhythm Excessive daytime sleepiness Mild intermittent asthma Nocturnal cough Screening-pulmonary TB Intermittent palpitations Annual visit for general adult medical examination with abnormal findings Impaired fasting glucose Mass of left side of neck Labial lesion Severe menstrual cramps Heavy menstrual bleeding Chronic heartburn Morbid obesity Difficulty concentrating Depression with anxiety History of depression Vitamin D deficiency Surgical History History of wisdom tooth extraction Family History Paternal Grandmother Diabetes mellitus Hypertension Maternal Grandfather Bronchial asthma Maternal Grandmother Colon cancer Paternal Aunt No problems noted. Mother Depression Mental health disorder Social History Housing: Apartment Alcohol intake: former Patient Tobacco Use Status: Never used Tobacco e-Cigarette/Vaping Use: Never Used Second Hand Smoke Exposure: No Substance Use Type: Marijuana service: No Current occupational status: unemployed Cognitive needs: No Hearing needs: No Vision needs: No Female Reproductive History Menstrual Age of Menarche: 10 Review of Systems Const All systems reviewed & are unremarkable except as noted in HPI and below Physical Exam Const General: cooperative, healthy appearing and comfortable HEENT Head: Yes normal to inspection and Yes normocephalic Resp Effort & Inspection: normal respiratory effort GI Inspection: Yes normal to inspection Extrem General: Yes full ROM Psych Appearance: grossly normal Assessment & Plan Assessment & Plan (1) Cholelithiasis: Code(s): K80.20 - Calculus of gallbladder without cholecystitis without obstruction (2) Chronic heartburn: Code(s): R12 - Heartburn Plan Ddx include GERD, EoE, celiac, PUD, symptomatic gallstones. Plan: - labs ordered as below - Barium swallow - Stop pepcid. Start omeprazole 20 to be taken once daily 30-40 mins before breakfast - Surgery consultation already booked - Follow up in 3 months to review indication for further work up including EGD Orders: Orders Liver Panel Today K80.20 - Calculus of gallbladder without cholecystitis without obstruction Transglutaminase IgA Today R12 - Heartburn Immunoglobulin A Today R12 - Heartburn FL barium swallow Today R12 - Heartburn Medications: New omeprazole 20 mg PO DAILY 90 caps 0RF Discontinued famotidine Discontinued Reason: Doctor's Order 40 mg PO DAILY 30 tabs 5RF R12 - Heartburn Coding Level of Care Code New Pt Level 4 (61941) Diagnoses Cholelithiasis K80.20 Chronic heartburn R12
[2023-05-14 12:51] VITALS: BP 121/57; PULSE 68; BMI 45.5
== END 2023-05-14 13:25 | disposition home or self-care (01) ==
PROVIDERS: PCP Internal Medicine; Visit Provider Internal Medicine
DX: K80.20 Calculus of gallbladder without cholecystitis without obstruction (principal); R12 Heartburn
CPT/HCPCS: 99204

== ENCOUNTER → 2023-05-14 12:30 | Outpatient (BNVA) | payer OTHER, SELFPAY | PROVIDERS: PCP Internal Medicine; Visit Provider Internal Medicine | DX: K80.20 Calculus of gallbladder without cholecystitis without obstruction (principal); R12 Heartburn | CPT/HCPCS: 99202 ==

== ENCOUNTER 2023-05-17 10:01 | Outpatient (AMB) | payer OTHER, SELFPAY ==
--- NOTE | 2023-05-17 10:03 | MHC.OFFVIS ---
Intake Vital Signs 05/17/23 10:09 Height 5 ft 2 in Weight 253 lb BMI 46.3 BP 125/59 L Blood Pressure Location Rt brachial Position Sitting Pulse 57 Intake Visit Reasons: Calculus of gallbladder Intake Note: Patient referred by PCP Dr. Lam for calculus of gallbladder. Recent Abd US on 03-25-23. Patient c/o: pain on rt abd then spreads around belly, constipation. Import And Export Clerk Required: No Accompanied by: mother Judy Cooper Allergies No Known Allergies Allergy (Verified 05/17/23 10:08) HPI HPI Comments History of Present Illness Details Patient presents with her mother. She has had several year history of right upper quadrant pain radiating around to her back with all meals but in particular greasy, fried, fatty foods. She has never been jaundiced before. She has no other GI issues or complaints. Patient has regular bowel habits. Chart was reviewed and patient evaluated. Ultrasound shows cholelithiasis [facility] Medical History (Updated 05/17/23 @ 10:40 by Peewee Swain MD) Cholelithiasis Anxiety and depression Depression Family history of colon cancer Chest wall pain, chronic Disturbed sleep rhythm Excessive daytime sleepiness Mild intermittent asthma Nocturnal cough Screening-pulmonary TB Intermittent palpitations Annual visit for general adult medical examination with abnormal findings Impaired fasting glucose Mass of left side of neck Labial lesion Severe menstrual cramps Heavy menstrual bleeding Chronic heartburn Morbid obesity Difficulty concentrating Depression with anxiety History of depression Vitamin D deficiency Surgical History History of wisdom tooth extraction Family History Paternal Grandmother Diabetes mellitus Hypertension Maternal Grandfather Bronchial asthma Maternal Grandmother Colon cancer Paternal Aunt No problems noted. Mother Depression Mental health disorder Social History (Updated 05/17/23 @ 10:09 by NATHANIEL Reis) Housing: Apartment Alcohol intake: former Patient Tobacco Use Status: Never used Tobacco e-Cigarette/Vaping Use: Never Used Second Hand Smoke Exposure: No Substance Use Type: Marijuana service: No Current occupational status: unemployed Cognitive needs: No Hearing needs: No Vision needs: No Female Reproductive History Menstrual Age of Menarche: 10 Physical Exam Vital Signs: Last Vital Signs Pulse 57 05/17/23 10:09 BP 125/59 L 05/17/23 10:09 BMI result Body Mass Index 46.3 Chest Other: Chest breath sounds bilaterally, HS 1 in 2 GI Other: Abdomen soft, corpulent, benign Assessment & Plan Assessment & Plan (1) Recurrent biliary colic: Code(s): K80.50 - Calculus of bile duct without cholangitis or cholecystitis without obstruction (2) Cholelithiasis: Code(s): K80.20 - Calculus of gallbladder without cholecystitis without obstruction Plan Risks, benefits, alternatives of laparoscopic possible open cholecystectomy reviewed the patient and included but not limited to bleeding, infection, recurrence of symptoms, numbness, pain, scarring, bowel or bile duct injury or leak and the patient wishes to proceed. All questions answered. Arrangements were made for this. Coding Level of Care Code New Pt Level 5 (49482) Diagnoses Recurrent biliary colic K80.50 Cholelithiasis K80.20
[2023-05-17 10:09] VITALS: BP 125/59; PULSE 57; BMI 46.3
== END 2023-05-17 10:55 | disposition home or self-care (01) ==
PROVIDERS: PCP Internal Medicine; Referring Provider Internal Medicine; Visit Provider Surgery
DX: K80.50 Calculus of bile duct without cholangitis or cholecystitis without obstruction (principal); K80.20 Calculus of gallbladder without cholecystitis without obstruction
CPT/HCPCS: 99204

== ENCOUNTER → 2023-05-17 10:01 | Outpatient (BNVA) | payer OTHER, SELFPAY | PROVIDERS: PCP Internal Medicine; Referring Provider Internal Medicine; Visit Provider Surgery | DX: K80.50 Calculus of bile duct without cholangitis or cholecystitis without obstruction (principal); K80.20 Calculus of gallbladder without cholecystitis without obstruction | CPT/HCPCS: 99202 ==

== ENCOUNTER 2023-06-03 09:11 | Outpatient (REF) | payer OTHER, SELFPAY ==
[2023-06-03 13:02] LABS: Alanine Aminotransferase 23 U/L (0-31); Albumin Level 4.1 g/dL (3.5-5.0); Alkaline Phosphatase 69 U/L (39-117); Aspartate Amino Transferase 19 U/L (5-31); Bilirubin Direct 0.2 mg/dL (0.0-0.5); Bilirubin Total 0.4 mg/dL (0.0-1.0); Total Protein 7.1 g/dL (6.5-8.0)
[2023-06-04 16:14] LABS: Immunoglobulin A 236 mg/dL (47-310)
[2023-06-05 13:52] LABS: Transglutaminase IgA <1.0 U/mL
== END 2023-06-03 09:12 | disposition home or self-care (01) ==
LOC: HO.HMGCLDS 09:11
PROVIDERS: PCP Internal Medicine; Visit Provider Internal Medicine
DX: R12 Heartburn (principal); K80.20 Calculus of gallbladder without cholecystitis without obstruction
CPT/HCPCS: 36415; 80076; 82784; 86364

== ENCOUNTER 2023-06-07 06:25 | Day surgery (SDC) | payer OTHER, SELFPAY ==
[2023-05-30 15:24] VITALS: BMI 46.3
--- NOTE | 2023-06-05 15:21 | P.CONAN_ITS ---
Documented by User: Cathy Panda NP 06/05/23 15:23 HPI - Anesthesia Eval Consult details Narrative: 27yo F for Cholecystectomy Laparoscopic,possible open PMFSH Active Problems Active Problems: All Active Problems (Updated 05/30/23 @ 15:22 by Vidya Alvarez RN) Recurrent biliary colic (Acute) Snoring (Acute) Cholelithiasis (Acute) Anxiety and depression (Acute) Family history of colon cancer (Acute) Chest wall pain, chronic (Acute) Disturbed sleep rhythm (Acute) Excessive daytime sleepiness (Acute) Mild intermittent asthma (Acute) Nocturnal cough (Acute) Screening-pulmonary TB (Acute) Intermittent palpitations (Acute) Annual visit for general adult medical examination with abnormal findings (Acute) Impaired fasting glucose (Acute) Chronic heartburn (Acute) Morbid obesity (Acute) Past Medical History Medical History Cholelithiasis Anxiety and depression Family history of colon cancer Chest wall pain, chronic Disturbed sleep rhythm Excessive daytime sleepiness Mild intermittent asthma Nocturnal cough Screening-pulmonary TB Intermittent palpitations Annual visit for general adult medical examination with abnormal findings Impaired fasting glucose Mass of left side of neck Labial lesion Severe menstrual cramps Heavy menstrual bleeding Chronic heartburn Morbid obesity Difficulty concentrating Depression with anxiety Vitamin D deficiency Family History Family History Paternal Grandmother Diabetes mellitus Hypertension Maternal Grandfather Bronchial asthma Maternal Grandmother Colon cancer Paternal Aunt No problems noted. Mother Depression Mental health disorder Surgical History Surgical History History of wisdom tooth extraction Social History Social History Housing: Apartment Are you a primary primary care nurse practitioner to a significant other at home: No Do you presently have visiting nurse or other home services: No Alcohol intake: former Patient Tobacco Use Status: Former Tobacco user Quit Date: 2015 Tobacco use type: Cigarette e-Cigarette/Vaping Use: Never Used Second Hand Smoke Exposure: No Use of substances other than those prescribed or required for medical reasons: Yes Substance Use Type: Marijuana Substance Use Frequency: Daily Have you been hit, kicked, punched, or otherwise hurt by someone within the past year? If so, by whom?: No Are you DNR?: No Advance Directives: No Advance Directives Information Provided: Yes Advance Directives on File: No Recently lost weight without trying: No Eating poorly because of decreased appetite: No Nutrition Risks: No Nutritional Risk Patient : No FDLMP: 05/13/23 : No Poor oral hygiene: No service: No Current occupational status: unemployed Cognitive needs: No Hearing needs: No Vision needs: No Meds Allergies Allergy/AdvReac Type Severity Reaction Status Date / Time No Known Allergies Allergy Verified 06/07/23 07:09 Home Medications Medication Instructions Recorded Confirmed Last Taken Type cholecalciferol (vitamin D3) 125 125 mcg PO DAILY 09/12/20 06/07/23 Unknown History mcg (5,000 unit) capsule albuterol sulfate 90 mcg/actuation 2 inh inhalation Q4H PRN Shortness 02/13/23 06/07/23 Unknown History aerosol inhaler (Ventolin HFA) Of Breath Or Wheezing omeprazole 20 mg capsule,delayed 20 mg PO QAM 05/30/23 06/07/23 06/07/23 05:20 History release Exam Height,Weight and Vital Signs: Height 5 ft 2 in Weight 114.759 kg Narrative Narrative: EKG 01/2024 NSR with SA @ 74 Assessment and Plan Assessment Anesthesia Assessment: Chart Reviewed Documented by User: Deja Linton MD 06/07/23 08:24 [facility] Past Medical History Medical History Cholelithiasis Anxiety and depression Family history of colon cancer Chest wall pain, chronic Disturbed sleep rhythm Excessive daytime sleepiness Mild intermittent asthma Nocturnal cough Screening-pulmonary TB Intermittent palpitations Annual visit for general adult medical examination with abnormal findings Impaired fasting glucose Mass of left side of neck Labial lesion Severe menstrual cramps Heavy menstrual bleeding Chronic heartburn Morbid obesity Difficulty concentrating Depression with anxiety Vitamin D deficiency Family History Family History Paternal Grandmother Diabetes mellitus Hypertension Maternal Grandfather Bronchial asthma Maternal Grandmother Colon cancer Paternal Aunt No problems noted. Mother Depression Mental health disorder Surgical History Surgical History History of wisdom tooth extraction History of Problems with Anesthesia: No Social History Social History Housing: Apartment Are you a primary primary care nurse practitioner to a significant other at home: No Do you presently have visiting nurse or other home services: No Alcohol intake: former Patient Tobacco Use Status: Former Tobacco user Quit Date: 2015 Tobacco use type: Cigarette e-Cigarette/Vaping Use: Never Used Second Hand Smoke Exposure: No Use of substances other than those prescribed or required for medical reasons: Yes Substance Use Type: Marijuana Substance Use Frequency: Daily Have you been hit, kicked, punched, or otherwise hurt by someone within the past year? If so, by whom?: No Are you DNR?: No Advance Directives: No Advance Directives Information Provided: Yes Advance Directives on File: No Recently lost weight without trying: No Eating poorly because of decreased appetite: No Nutrition Risks: No Nutritional Risk Patient : No FDLMP: 05/13/23 : No Poor oral hygiene: No service: No Current occupational status: unemployed Cognitive needs: No Hearing needs: No Vision needs: No Meds Allergies Allergy/AdvReac Type Severity Reaction Status Date / Time No Known Allergies Allergy Verified 06/07/23 07:09 Home Medications Medication Instructions Recorded Confirmed Last Taken Type cholecalciferol (vitamin D3) 125 125 mcg PO DAILY 09/12/20 06/07/23 Unknown History mcg (5,000 unit) capsule albuterol sulfate 90 mcg/actuation 2 inh inhalation Q4H PRN Shortness 02/13/23 06/07/23 Unknown History aerosol inhaler (Ventolin HFA) Of Breath Or Wheezing omeprazole 20 mg capsule,delayed 20 mg PO QAM 05/30/23 06/07/23 06/07/23 05:20 History release Exam Airway Mallampati Class: II TM Dist: >3cm Neck ROM: Full Loose/Missing/Broken Teeth: No Heart: RRR Lungs: CTA Assessment and Plan Assessment Anesthesia Assessment: Anesthesia Plan Discussed Final Anesthetic Review History of Problems with Anesthesia: No NPO: Yes ASA Class: III Final Preanesthetic Review: Meds/Allgs Chart Reviewed, Consent Obtained/Reviewed and Anes Risks/Benef Reviewed Patient Risk: Intermediate Procedure Risk: Intermediate Anesthetic Plan Anesthetic Plan: GA Disposition: Standard PACU
--- NOTE | 2023-06-06 20:56 | MHC.SHP ---
Pre-Procedural Eval Section A - 24 Hr Update-Section A only Date of Service: 06/06/23 The patient is an INPATIENT: No Changes since office visit: No Cold of Flu in the past 2 weeks, No New Medical Problems, No Changes in Medication and No Patient answered all questions The patient has been examined within 24 hours of the surgical procedure. The History & Physical has been completed within 30 days and I have reviewed it.: Yes Section B - Complete if H&P > 30 days Chief Complaint: Calculus of bile duct and calculus gallbladder Allergies: Allergies Allergy/AdvReac Type Severity Reaction Status Date / Time No Known Allergies Allergy Verified 05/17/23 10:08 Plan I have reviewed the history and physical and performed a pertinent physical examination on my patient. No changes have occurred unless specified. Time Spent With Patient Time: Total time managing care of this patient today ____ minutes.
[2023-06-07] VITALS (13 sets, daily range): BP systolic 117–143; BP diastolic 62–88; PULSE 61–83; RESP 12–20; TEMP 36.2–37.1; O2SAT 96–99; BMI 45.7
[2023-06-07 07:20] LABS: Urine Pregnancy NEGATIVE (NEGATIVE)
[2023-06-07 07:21] LABS: UPreg QC Valid YES
[2023-06-07] MEDS: Lactated Ringers 1,000 ML 100 ML IVCONT (07:50)
--- NOTE | 2023-06-07 10:38 | P.OP_ITS ---
Operative Note Operative Note Date of Service: 06/07/23 Narrative: Preoperative diagnosis; symptomatic gallbladder Postop diagnosis; The same Procedure [] laparoscopic cholecystectomy Surgeon: [] Wiliam Psychotherapist Social Worker: [] Margaret Type of Anesthesia: [] General Indication for surgery: [] Very corpulent abdomen. Gallbladder with dense omental adhesions to it. Intrahepatic gallbladder. Findings: [] Patient brought to the operating room, placed on operative table in supine position, after adequate level of general anesthesia was induced, the patient's abdomen was prepped and draped in usual sterile fashion. Very corpulent abdomen. Using a supraumbilical curvilinear incision, Kelley technique was used to insufflate the abdominal cavity to 15 mm of CO2. Upper midline and right subcostal ports were placed under direct laparoscopic view, and the patient placed in reverse Trendelenburg position, and tilted to the left. Findings were as noted above. Gallbladder was grasped with laparoscopic graspers, and retracted superiorly and laterally. Omental adhesions were swept off the gallbladder with the hilum was approached. Cystic artery and cystic duct were each identified, circumferentially skeletonized, traced directly into the gallbladder and critical view obtained. Each was clipped proximally x2, distally x1, and transected. Gallbladder which was very intrahepatic was then cauterized from the gallbladder fossa using Bovie. Specimen was placed in an Endo-Catch bag, a retrieved through the umbilical port. Abdominal cavity was copiously irrigated, and secured hemostasis. All ports were removed under direct laparoscopic view. Wounds were closed in the following manner; umbilical wound is fascia reapproximated using interrupted 0 Vicryl sutures. Skin wounds were closed using subcuticular 4-0 Vicryl sutures followed by Steri-Strips and sterile dressings. Wounds were infiltrated 0.5% Marcaine at completion. Sponge, needle, and instrument counts reported correct. Patient tolerated procedure well and emerged from anesthesia stable condition. EBL minimal
[2023-06-07] MEDS: fentaNYL citrate/PF 100 MCG/2 ML VIAL 50 MCG IVPUSH (11:05)
[2023-06-07] MEDS: oxyCODONE HCl Immed Release 5 MG TABLET PO (11:05)
[2023-06-07] MEDS: ondansetron HCL 4 MG/2 ML VIAL IVPUSH (11:46)
== END 2023-06-07 13:10 | disposition home or self-care (01) ==
PROVIDERS: Nurse Practitioner; PCP Internal Medicine; Visit Provider Surgery
PROC: 0FT44ZZ Resection of Gallbladder, Percutaneous Endoscopic Approach (ICD-10-PCS; CPT 47562; principal; 2023-06-07 08:20)
DX: K80.10 Calculus of gallbladder with chronic cholecystitis without obstruction (principal); K82.8 Other specified diseases of gallbladder; Q44.1 Other congenital malformations of gallbladder; F41.8 Other specified anxiety disorders; R00.2 Palpitations; J45.20 Mild intermittent asthma, uncomplicated; R73.01 Impaired fasting glucose; Z80.0 Family history of malignant neoplasm of digestive organs; E66.01 Morbid (severe) obesity due to excess calories; Z68.42 Body mass index [BMI] 45.0-49.9, adult; Z79.899 Other long term (current) drug therapy; Z87.891 Personal history of nicotine dependence
CPT/HCPCS: 47562; 81025; 88304; J0131; J0690; J1100; J2250; J2405; J2704; J2795; J3010

== ENCOUNTER → 2023-06-07 06:25 | Outpatient (BNV) | payer OTHER, SELFPAY | PROVIDERS: PCP Internal Medicine; Visit Provider Surgery | DX: K80.20 Calculus of gallbladder without cholecystitis without obstruction (principal); K80.50 Calculus of bile duct without cholangitis or cholecystitis without obstruction | CPT/HCPCS: 47562 ==

== ENCOUNTER 2023-06-17 11:33 | Outpatient (AMB) | payer OTHER, SELFPAY ==
[2023-06-17 11:43] VITALS: BP 127/57; PULSE 68
--- NOTE | 2023-06-17 11:43 | A.OFFVIS_ITS ---
Intake Vital Signs 06/17/23 11:43 Weight 243 lb BP 127/57 L Blood Pressure Location Rt brachial Position Sitting Pulse 68 Intake Visit Reasons: S/P lap sheela Intake Note: Patient here s/o lap sheela on 06-07-23. Reports incisions healing well. Patient c/o: no longer taking rx pain meds. 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 She has tolerating a diet. He is having regular bowel habits. She has no wound issues or complaints. She is increasing her activity level. Pathology is benign. [facility] Medical History Cholelithiasis Anxiety and depression Family history of colon cancer Chest wall pain, chronic Disturbed sleep rhythm Excessive daytime sleepiness Mild intermittent asthma Nocturnal cough Screening-pulmonary TB Intermittent palpitations Annual visit for general adult medical examination with abnormal findings Impaired fasting glucose Mass of left side of neck Labial lesion Severe menstrual cramps Heavy menstrual bleeding Chronic heartburn Morbid obesity Difficulty concentrating Depression with anxiety Vitamin D deficiency Surgical History History of laparoscopic cholecystectomy (06/07/23) History of wisdom tooth extraction Family History Paternal Grandmother Diabetes mellitus Hypertension Maternal Grandfather Bronchial asthma Maternal Grandmother Colon cancer Paternal Aunt No problems noted. Mother Depression Mental health disorder Social History Housing: Apartment Are you a primary healthcare administration internship to a significant other at home: No Do you presently have visiting nurse or other home services: No Alcohol intake: former Comment: counts correct Patient Tobacco Use Status: Former Tobacco user Quit Date: 2015 Tobacco use type: Cigarette e-Cigarette/Vaping Use: Never Used Second Hand Smoke Exposure: No Substance Use Type: Marijuana service: No Current occupational status: unemployed Cognitive needs: No Hearing needs: No Vision needs: No Female Reproductive History Menstrual Age of Menarche: 10 Physical Exam Vital Signs: Last Vital Signs Pulse 68 06/17/23 11:43 BP 127/57 L 06/17/23 11:43 Eyes Other: Anicteric GI Other: Abdomen is soft. All wounds clean dry and intact healing well. Assessment & Plan Assessment & Plan (1) Status post laparoscopic cholecystectomy: Code(s): Z90.49 - Acquired absence of other specified parts of digestive tract Plan Patient has been given local instructions, and will follow-up p.r.n.. All questions answered. Coding Level of Care Code Global (01658) Diagnoses Status post laparoscopic cholecystectomy Z90.49
== END 2023-06-17 12:06 | disposition home or self-care (01) ==
PROVIDERS: PCP Internal Medicine; Visit Provider Surgery
DX: Z90.49 Acquired absence of other specified parts of digestive tract (principal)
CPT/HCPCS: 99024

== ENCOUNTER → 2023-06-17 11:33 | Outpatient (BNVA) | payer OTHER, SELFPAY | PROVIDERS: PCP Internal Medicine; Visit Provider Surgery | DX: Z09 Encounter for follow-up examination after completed treatment for conditions other than malignant neoplasm (principal); Z90.49 Acquired absence of other specified parts of digestive tract | CPT/HCPCS: 99212 ==

== ENCOUNTER 2023-07-22 07:51 | Outpatient (AMB) | payer OTHER, SELFPAY ==
--- NOTE | 2023-07-22 07:54 | A.OFFPC_ITS ---
Vital Signs 07/22/23 07:57 Height 5 ft 2 in Weight 248 lb BMI 45.4 BP 100/64 Blood Pressure Location Rt brachial Position Sitting Pulse 62 Pulse Source Pulse Oximeter Pulse Oximetry (%) 99 Oxygen Delivery Method Room Air Intake Visit Reasons: Annual PE Intake Note: Pt is here today for her PE: Papsmear 05/09/21 Is last menstrual period known: Yes Last menstrual period: 07/11/23 Allergies No Known Allergies Allergy (Verified 07/22/23 08:14) Medication List - Last Reconciled 07/22/23 by Faby Lam MD albuterol sulfate 90 mcg/actuation (Ventolin HFA) 2 inhalations inhalation Q4H PRN cholecalciferol (vitamin D3) 125 mcg PO DAILY diclofenac sodium 1% 2 grams topical QID PRN omeprazole 20 mg PO QAM Tobacco use date assessed: 07/22/23 Dental Screening Dental Screen Date: 07/22/23 Did you have a dental visit in the last 12 months?: Yes Did you have a dental problem in the last 6 months where you did not have access to dental care?: No Was dental information given to patient?: Patient has dentist HPI Annual PE HPI Details 28-year-old lady here today for her phys ical exam. She has mild intermittent asthma, rarely needing to use her albuterol inhaler, usually gets an attack during changes in temperature or when she gets very anxious. She has history of vitamin-D deficiency as noted on last physical exam, currently taking vitamin-D 3 supplements. She had laparoscopic cholecystectomy done a year ago due to gallstones, still having intermittent episodes of lower abdominal cramping and soft stools. She has been following recommended diet of low fat. She also has started cutting back on her carbs. Takes omeprazole as needed for intermittent episodes of heartburn. Has an appointment for follow-up with Dr. Chavez next month. Has anxiety depression, previously started on sertraline but had to stop it as she started having sharp headaches and electrical sensation in her head when she started taking it. She is currently being seen by therapist via telehealth, which she states has been helping, does not want to start any medication at present time. Has been having left shoulder pain, which starts in the back of her left shoulder, goes down her left arm , occasionally accompanied by tingling in fingers of left hand. Denies any weakness. No history of trauma. Has been massaging diclofenac gel which affords no relief, takes Advil which occasionally helps. She sees [facility] for her routine Pap and pelvic exam, last Pap smear was done in 2021 with negative findings. Has had COVID vaccines in the past does not want to get the vaccine booster, up-to-date with her flu shot and Tdap. [facility] Medical History Cholelithiasis Anxiety and depression Family history of colon cancer Chest wall pain, chronic Disturbed sleep rhythm Excessive daytime sleepiness Mild intermittent asthma Nocturnal cough Screening-pulmonary TB Intermittent palpitations Annual visit for general adult medical examination with abnormal findings Impaired fasting glucose Mass of left side of neck Labial lesion Severe menstrual cramps Heavy menstrual bleeding Chronic heartburn Morbid obesity Difficulty concentrating Depression with anxiety Vitamin D deficiency Surgical History History of laparoscopic cholecystectomy (06/07/23) History of wisdom tooth extraction Family History Paternal Grandmother Diabetes mellitus Hypertension Maternal Grandfather Bronchial asthma Maternal Grandmother Colon cancer Paternal Aunt No problems noted. Mother Depression Mental health disorder Social History Housing: Apartment Are you a primary administrator health care facility to a significant other at home: No Do you presently have visiting nurse or other home services: No Alcohol intake: former Comment: counts correct Patient Tobacco Use Status: Former Tobacco user Quit Date: 2015 Tobacco use type: Cigarette e-Cigarette/Vaping Use: Never Used Second Hand Smoke Exposure: No Substance Use Type: Marijuana service: No Current occupational status: unemployed Cognitive needs: No Hearing needs: No Vision needs: No Female Reproductive History Menstrual Age of Menarche: 10 Duration of menses: 3-5 days Date of last menstrual period: 07/11/23 control method: none Questionnaire PHQ-9 Over the last 2 weeks, how often have you been bothered by any of the following problems? 1. Little interest or pleasure in doing things: several days 2. Feeling down, depressed, or hopeless: several days 3. Trouble falling or staying asleep, or sleeping too much: several days 4. Feeling tired or having little energy: several days 5. Poor appetite or overeating: several days 6. Feeling bad about yourself - or that you are a failure or have let yourself or your family down: several days 7. Trouble concentrating on things, such as reading the newspaper or watching television: several days 8. Moving or speaking so slowly that other people could have noticed. Or the opposite - being so fidgety or restless that you have been moving around a lot more than usual: several days 9. Thoughts that you would be better off or of hurting yourself in some way: several days Total score: 9 Depression Screening Interpretation: Positive (Sees therapist via , which is helping manage anxiety and depression , does not want to start medicines) Depression Screening Follow-up: Existing condition, In treatment and Community Mental Health Worker F/U Depression Screening Done: Yes Source: Developed by Drs. Andrew Hernandes, Valencia Mejia, Raghav Licea and colleagues, with an educational mihaela from [employer]. Thrive Questionnaire Date Thrive assessed: 07/13/22 I am a: Patient What is your living situation today?: I have a steady place to live Within the past 12 months, did the food you bought not last and you didn't have the money to get more?: Never true Within the past 12 months, did you worry whether your food would run out before you got money to buy more?: Never true Do you have trouble paying for medicines?: No Do you have trouble getting transportation to medical appointments?: No Do you have trouble paying your heating and electricity bill?: No Do you have trouble taking care of your child, family member or friend?: No Do you have trouble with day-to-day activities such as bathing, preparing meals, shopping, managing finances, etc.?: No Are you currently unemployed and looking for a job?: Yes Are you interested in more education?: Yes THRIVE Score: 0 AUDIT C Alcohol Use Questionnaire (AUDIT-C) 1. How often do you have a drink containing alcohol?: Monthly or less 2. How many drinks containing alcohol do you have on a typical day when you are drinking?: 1 or 2 3. How often do you have six or more drinks on one occasion?: Never Total Score: 1 KIARA-7 AMB Questionnaire KIARA-7 Date KIARA - 7 assessed: 07/22/23 Feeling nervous, anxious, or on edge: 1 = Several days Not being able to stop or control worryin = Several days Worrying too much about different things: 1 = Several days Trouble relaxin = Several days Being so restless that it is hard to sit still: 1 = Several days Becoming easily annoyed or irritable: 1 = Several days Feeling afraid as if something awful might happen: 1 = Several days Total KIARA-7 score (0-4 normal; 5-9 mild; 10-14 moderate; 15-21 severe): 7 Source: Developed by Drs. Andrew Hernandes, Valencia Mejia, Raghav Licea and colleagues, with an educational mihaela from [employer]. KIARA-7 Assessment Billing KIARA-7 Assessment Tool: KIARA-7 Assessment 34936 ACT Questionnaire In the past 4 weeks, how much of the time did your asthma keep you from getting as much done at work, school or at home?: None of the time During the past 4 weeks, how often have you had shortness of breath?: Not at all During the past 4 weeks, how often did your asthma symptoms wake you up at night or earlier than usual in the morning?: Not at all During the past 4 weeks, how often have you had to use your rescue inhaler or nebulizer medication?: Not at all How would you rate your asthma control during the past 4 weeks?: Completely controlled Score: 25 Review of Systems Const Denies fatigue, Denies fever(s), Denies headache(s) and Denies weakness Eyes Details: Has an appointment with her eye doctor already scheduled Reports blurry vision and Reports requires corrective lenses ENT Denies vertigo, Denies dizziness, Denies headache(s), Denies nasal congestion, Denies nasal discharge and Denies sore throat Card Denies chest pain, Denies lightheadedness, Denies palpitations and Denies dyspnea Resp Details: Has been seen for sleep study in the past with normal findings per patient Denies chest congestion, Denies cough, Denies dyspnea and Denies wheezing GI Denies melena, Denies bloating, Denies hematochezia and Denies nausea Denies urinary frequency, Denies dysuria and Denies urinary urgency Musc Reports as per HPI Skin/Breast Denies breast pain, Denies breast mass and Denies rash Neuro Denies vertigo, Denies dizziness, Denies headache(s), Denies focal weakness, Denies seizure-like activity and Denies weakness Psych Reports no additional complaints Endo Denies fatigue, Denies polydipsia, Denies polyuria and Denies palpitations Rolan/Lymph Denies easy bruising Aller/Immun Denies seasonal rhinorrhea and Denies wheezing Physical exam (Primary Care) Vital Signs: Last Vital Signs Pulse 62 07/22/23 07:57 BP 100/64 07/22/23 07:57 Pulse Ox 99 07/22/23 07:57 Oxygen Delivery Method Room Air 07/22/23 07:57 BMI result Body Mass Index 45.4 BMI Assessment/Plan discussion: High BMI High, discussed plan: lifestyle, weight reduction and physical activity Tobacco/Smoking Status: Tobacco use Status Tobacco use date assessed 07/22/23 07/22/23 08:02 Patient Tobacco Use Status Former Tobacco user 07/22/23 07:55 Tobacco use type Cigarette 07/22/23 07:55 e-Cigarette/Vaping Use Never Used 07/22/23 07:55 PHQ-9: PHQ-9 Score PHQ-9: Total score 9 07/22/23 08:02 Depression Screening Interpretation: Positive (Sees therapist via [facility] , which is helping manage anxiety and depression , does not want to start medicines) Depression Screening Follow-up: Existing condition, In treatment and Community Mental Health Worker F/U Thrive Assessment: Date of Thrive Assessment Date Thrive assessed 07/13/22 07/22/23 07:55 Advance Care Planning discussion: Completed/Scanned Date of discussion: 07/22/23 Who was present: Patient Forms completed: Health Care Proxy Time spent: 16-45 minutes Actual minutes spent: 16 Const Other: Obese, alert, oriented x3, no acute cardiorespiratory distress, ambulatory with normal gait General: cooperative, comfortable and no acute distress Nutritional Appearance: obese morbidly obese Orientation/consciousness: patient oriented x3 [facility] Head: Yes normocephalic Ears: hearing grossly normal bilaterally, external ears normal, TM's normal bilaterally and EAC's normal General nose exam: Normal external nose present and No nasal discharge present Face and sinus: Yes face symmetric Mouth: Normal oral and palatal mucosa present, tongue normal, oropharynx normal and moist mucous membranes Eyes General: appearance normal, both eyes and all related structures Neck Neck: Yes full ROM, Yes no lymphadenopathy and Yes supple Thyroid: Thyroid normal Chest Chest palpation & inspection: normal inspection of the chest Breast/axilla palpation: normal palpation of the breasts Resp Effort & Inspection: normal respiratory effort and able to speak in complete sentences Auscultation: clear to auscultation bilaterally Cardio Rate: regular rate Rhythm: regular rhythm Heart sounds: S1 normal heart sound present and S2 normal heart sound present GI Inspection: Yes Abdominal panniculus present and Yes obesity Palpation (GI): Soft to palpation and no masses Auscultation: normal bowel sounds General: Yes no CVA tenderness and Yes deferred (Currently being seen by ELVIRA [place]) Back/Spine/Pelvis Back: no CVA tenderness and No back tenderness Skin General skin exam: no rashes or lesions noted Neuro General: patient oriented x3, gait normal, tone normal, moves all extremities and Normal light touch and pain sensation Cognition (Neuro): normal cognition Gait exam (Neuro): Normal gait present Extrem Other: Slight tenderness on palpation over left trapezius and posterior aspect of left shoulder joint, full range of motion of joint noted, negative impingement sign General: Yes normal to inspection, Yes full ROM, Yes no joint enlargement, Yes no clubbing, cyanosis or edema and Yes normal gait Psych Appearance: grossly normal and well kempt Mental Status: mental status grossly normal Speech and movement: Normal speech and movement present Affect: normal affect Attitude: cooperative Assessment and Plan Assessment & Plan (1) Morbid obesity: Code(s): E66.01 - Morbid (severe) obesity due to excess calories Plan: Discussed need to increase activity and weight reduction. Recommended focusing on improving your health instead of dieting. : Eat Mediterranean diet, limit foods high in fat, sugar, and calories, eat slowly, pay attention to portion sizes, plan your meals ahead of time, start regular p hysical activity 150 minutes of moderate intensity exercise or 90 minutes/week of vigorous exercise and increase water intake. (2) Impaired fasting glucose: Code(s): R73.01 - Impaired fasting glucose Plan: Your fasting blood sugars was elevated above 100 mg/dL. Impaired glucose meta bolism increases your risk for developing diabetes mellitus type 2, as well as heart attack and stroke later on. Lifestyle changes at just weight loss, healthy eating habits, and regular exercise are important, and can prevent the progression to diabetes (3) Annual visit for general adult medical examination with abnormal findings: Code(s): Z00.01 - Encounter for general adult medical examination with abnormal findings Plan: Will check appropriate labs. Recommended dental visit every 6 months and regular eye exams, at least every 2 years. Take adequate calcium in diet and vitamin-D 3 at 2000 IU per cap once a day, in addition to weight-bearing exercises to help maintain good muscle tone and weight control. Instructed to do self-breast exam, and recommended to get yearly mammogram, starting at age 40. Has had COVID vaccines in the past does not want to get the booster, up-to- date with her flu shot and Tdap (4) Mild intermittent asthma: Comment: uses prn inhaler only-is well controlled Code(s): J45.20 - Mild intermittent asthma, uncomplicated Qualifiers: Asthma complication type: uncomplicated Qualified Code(s): J45.20 - Mild intermittent asthma, uncomplicated Plan: Asthma symptoms stable and controlled, rarely needing to use her inhaler, (5) Anxiety and depression: Code(s): F41.9 - Anxiety disorder, unspecified; F32.A - Depression, unspecified Plan: Currently being seen and followed by therapist, does not want to start any medication at present (6) Left shoulder pain: Code(s): M25.512 - Pain in left shoulder Qualifiers: Chronicity: acute Qualified Code(s): M25.512 - Pain in left shoulder Plan: X-ray of left shoulder ordered, referred for physical therapy (7) History of vitamin D deficiency: Code(s): Z86.39 - Personal history of other endocrine, nutritional and metabolic disease Plan: Will check vitamin-D level Orders: Orders Vitamin D 25-OH Total Today E66.01 - Morbid (severe) obesity due to excess calories, F32.A - Depression, unspecified, F41.9 - Anxiety disorder, unspecified, J45.20 - Mild intermittent asthma, uncomplicated, R73.01 - Impaired fasting glucose, Z00.01 - Encounter for general adult medical examination with abnormal findings, Z86.39 - Personal history of other endocrine, nutritional and metabolic disease Glucose Fasting Today E66.01 - Morbid (severe) obesity due to excess calories, F32.A - Depression, unspecified, F41.9 - Anxiety disorder, unspecified, J45.20 - Mild intermittent asthma, uncomplicated, R73.01 - Impaired fasting glucose, Z00.01 - Encounter for general adult medical examination with abnormal findings XR shoulder LT min 2V Today M25.512 - Pain in left shoulder Lipid Panel Today E66.01 - Morbid (severe) obesity due to excess calories, F32.A - Depression, unspecified, F41.9 - Anxiety disorder, unspecified, J45.20 - Mild intermittent asthma, uncomplicated, R73.01 - Impaired fasting glucose, Z00.01 - Encounter for general adult medical examination with abnormal findings Hemoglobin A1c Today E66.01 - Morbid (severe) obesity due to excess calories, F32.A - Depression, unspecified, F41.9 - Anxiety disorder, unspecified, J45.20 - Mild intermittent asthma, uncomplicated, R73.01 - Impaired fasting glucose, Z00.01 - Encounter for general adult medical examination with abnormal findings PT Evaluation and Treatment Today M25.512 - Pain in left shoulder Coding Level of Care Code Est Pt Prev Care 18-39y([id number]) Diagnoses Morbid obesity E66.01 Impaired fasting glucose R73.01 Annual visit for general adult medical examination with abnormal findings Z00.01 Mild intermittent asthma without complication J45.20 Asthma complication type: uncomplicated Anxiety and depression F41.9; F32.A Acute pain of left shoulder M25.512 Chronicity: acute History of vitamin D deficiency Z86.39 Additional Codes KIARA-7 Assessment Billing - KIARA-7 Assessment Tool: KIARA-7 Assessment 20620 ([id number]) Vital Signs *Quality* - Advance Care Planning discussion: Completed/Scanned ([id number]) Vital Signs *Quality* - Time spent: 16-45 minutes ([id number])
[2023-07-22 07:57] VITALS: BP 100/64; PULSE 62; O2SAT 99; BMI 45.4
== END 2023-07-22 08:56 | disposition home or self-care (01) ==
PROVIDERS: Visit Provider Internal Medicine
DX: Z00.00 Encounter for general adult medical examination without abnormal findings (principal); E66.01 Morbid (severe) obesity due to excess calories; Z68.42 Body mass index [BMI] 45.0-49.9, adult; R73.01 Impaired fasting glucose; J45.20 Mild intermittent asthma, uncomplicated; F41.9 Anxiety disorder, unspecified; F32.A Depression, unspecified; M25.512 Pain in left shoulder; Z86.39 Personal history of other endocrine, nutritional and metabolic disease
CPT/HCPCS: 99395; 99497

== ENCOUNTER 2023-08-14 09:08 | Outpatient (AMB) | payer OTHER, SELFPAY ==
--- NOTE | 2023-08-14 09:08 | A.OFFVIS_ITS ---
Intake Visit Reasons: 3 month follow up Intake Note: Camryn presents as a telehealth 3 month follow up. CC: states that she is having stomach issues and diarrhea. 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 05/14/23: Describes frequent retrosternal burning with sour brash triggered by seltzer water, milk, chips etc. Assoc with nausea and vomiting. Stools fluctuate between soft and constipation. No blood in stool. Cannabis occ. No etOH. Frequent ibuprofen 600-1200 mg per day 2-3 times week. Mat grandmother: colon ca at 51. Father: anal ca in early 40s US Abd 03/2023: Gallstones wiht mild GB wall thickness. Seeing surg this week. 08/14/23: Here for follow-up. Had lap sheela in June, doing well since then. Abdominal discomfort and bloating has resolved. Reports soft, symptoms loose bowel movements since the surgery which she understands is expected after cholecystectomy and may resolve down the olive. She has persistent occasional difficulty swallowing, with certain textures and foods. Has history of asthma. No eczema. No seasonal allergies. [facility] Medical History Cholelithiasis Anxiety and depression Family history of colon cancer Chest wall pain, chronic Disturbed sleep rhythm Excessive daytime sleepiness Mild intermittent asthma Nocturnal cough Screening-pulmonary TB Intermittent palpitations Annual visit for general adult medical examination with abnormal findings Impaired fasting glucose Mass of left side of neck Labial lesion Severe menstrual cramps Heavy menstrual bleeding Chronic heartburn Morbid obesity Difficulty concentrating Depression with anxiety Vitamin D deficiency Surgical History History of laparoscopic cholecystectomy (06/07/23) History of wisdom tooth extraction Family History Paternal Grandmother Diabetes mellitus Hypertension Maternal Grandfather Bronchial asthma Maternal Grandmother Colon cancer Paternal Aunt No problems noted. Mother Depression Mental health disorder Social History Housing: Apartment Are you a primary managed care analyst to a significant other at home: No Do you presently have visiting nurse or other home services: No Alcohol intake: former Comment: counts correct Patient Tobacco Use Status: Former Tobacco user Quit Date: 2015 Tobacco use type: Cigarette e-Cigarette/Vaping Use: Never Used Second Hand Smoke Exposure: No Substance Use Type: Marijuana service: No Current occupational status: unemployed Cognitive needs: No Hearing needs: No Vision needs: No Female Reproductive History Menstrual Age of Menarche: 10 Review of Systems Const All systems reviewed & are unremarkable except as noted in HPI and below Physical Exam Vital Signs: Video visit: No acute distress Speaking in full sentences No shortness of breath noted Telehealth Telehealth Telehealth Platform: [employer] Location of provider rendering services: practice address Location of patient: address on file Patient Identification confirmed using: Name, : Yes Telehealth method: video Patient verbally consented to treatment: Yes Patient verbally consented to billing insurance company: Yes Patient informed of any privacy concerns related to visit: Yes Minutes spent on Phone/Video with Pt.: 12 Assessment & Plan Assessment & Plan (1) Dysphagia: Code(s): R13.10 - Dysphagia, unspecified Category: Medical (2) Chronic heartburn: Code(s): R12 - Heartburn Category: Medical Plan Differentials include ring, web, EoE, dysmotility. Plan: -will set her up for EGD with biopsies and possible dilation -a barium swallow is also being ordered Follow-up after above testing Coding Level of Care Code Tele Est Pt Level 4 (41991) Diagnoses Dysphagia R13.10 Chronic heartburn R12
== END 2023-08-14 09:29 | disposition home or self-care (01) ==
LOC: HO.HGI 09:08
PROVIDERS: PCP Internal Medicine; Visit Provider Internal Medicine
DX: R13.10 Dysphagia, unspecified (principal); R12 Heartburn
CPT/HCPCS: 99214

== ENCOUNTER → 2023-08-14 09:08 | Outpatient (BNVA) | payer OTHER, SELFPAY | PROVIDERS: PCP Internal Medicine; Visit Provider Internal Medicine ==

== ENCOUNTER 2023-10-08 08:30 | Outpatient (REF) | payer OTHER, SELFPAY ==
--- NOTE | ~2023-10-08 | FL_ITS ---
EXAMINATION: XR FLUOROSCOPY UPPER GI WITH AIR CLINICAL INFORMATION: Dysphagia COMPARISON: None TECHNIQUE: Fluoroscopic air contrast upper GI examination was performed utilizing standard techniques with thin and thick barium and effervescent granules. Numerous spot images were obtained. FINDINGS: Lateral cine images of the oropharynx and hypopharynx demonstrate normal swallow mechanism with normal epiglottic inversion and soft palate elevation. No tracheal penetration, glottic or subglottic aspiration identified. No nasopharyngeal reflux present. Hypopharyngeal structures appear normal without evidence of mass or diverticulum. There was no significant cricopharyngeal achalasia. Dual and single contrast images of the esophagus demonstrate normal caliber, contour, and mucosal pattern. No evidence of stricture, mass, or ulcerations identified. Esophageal peristalsis is moderately disorganized. Small type I hiatal hernia is present. No significant gastroesophageal reflux was seen during the course of the examination and on reflux views. Dual contrast and single contrast images of the stomach demonstrated a normal contour. The gastric rugal folds have a mildly thickened appearance. No masses or ulcerations are seen. Contrast freely passed into the gastric antrum and duodenal bulb without delay. Single and air-contrast images of the duodenal bulb demonstrate no abnormality. The duodenal sweep has a normal appearance, course, and mucosal fold appearance. The imaged proximal jejunum has a normal fold pattern and caliber. FLUOROSCOPY TIME: 4 minutes 14 seconds Number of Spot Images: 14 Number of Cine: 16 DOSE AREA PRODUCT: 3366 uGy-m2 (microgray-meter squared) FL/FL barium swallow IMPRESSION: 1. Moderately disorganized esophageal peristalsis 2. Small type I hiatal hernia 3. Mildly thickened gastric rugal folds that suggests gastritis. This procedure was performed by Yvon Clinton PA-C, and supervised by Dr. Mccann
== END 2023-10-08 08:31 | disposition home or self-care (01) ==
LOC: HO.XRAY 08:30
PROVIDERS: PCP Internal Medicine; Visit Provider Internal Medicine
DX: R13.10 Dysphagia, unspecified (principal)
CPT/HCPCS: 74220

== ENCOUNTER → 2023-10-08 08:37 | Outpatient (BNV) | payer OTHER, SELFPAY | PROVIDERS: PCP Internal Medicine; Visit Provider Physician Assistant Surgical | DX: R13.10 Dysphagia, unspecified (principal) | CPT/HCPCS: 74246 ==

== ENCOUNTER 2024-04-02 07:37 | Day surgery (SDC) | payer OTHER, SELFPAY ==
--- NOTE | 2024-04-02 07:55 | MHC.SHP ---
Pre-Procedural Eval Section A - 24 Hr Update-Section A only Date of Service: 04/02/24 Section B - Complete if H&P > 30 days Chief Complaint: dysphagia,heartburn Details of Present Illness: Cholelithiasis Anxiety and depression Family history of colon cancer Chest wall pain, chronic Disturbed sleep rhythm Excessive daytime sleepiness Mild intermittent asthma Nocturnal cough Screening-pulmonary TB Intermittent palpitations Annual visit for general adult medical examination with abnormal findings Impaired fasting glucose Mass of left side of neck Labial lesion Severe menstrual cramps Heavy menstrual bleeding Chronic heartburn Morbid obesity Difficulty concentrating Depression with anxiety Vitamin D deficiency Surgical History History of laparoscopic cholecystectomy (06/07/23) History of wisdom tooth extraction Present Medications: see Short Stay Collaborative assessment Allergies: Allergies Allergy/AdvReac Type Severity Reaction Status Date / Time No Known Allergies Allergy Verified 07/22/23 08:14 Review of Systems Review of Systems Comment: Ten point ROS negative Exam Exam Comment: Gen appear: No acute distress HEENT: no icterus Chest: No overt resp distress Abd: soft, nontender, nondistended Psych: Stable affect, answering questions appropriately Neuro: A/Ox3 noted to move all extremities spontaneously Ext: no peripheral edema Plan Diagnosis/Plan: Unchanged I have reviewed the history and physical and performed a pertinent physical examination on my patient. No changes have occurred unless specified. Time Spent With Patient Time: Total time managing care of this patient today ____ minutes.
[2024-04-02 08:13] VITALS: BP 120/67; PULSE 79; RESP 16; TEMP 36.7; O2SAT 97; BMI 45.7
[2024-04-02] MEDS: Lactated Ringers 1,000 ML 50 ML IVCONT (08:18)
[2024-04-02 08:33] LABS: UPreg QC Valid YES; Urine Pregnancy NEGATIVE (NEGATIVE)
--- NOTE | 2024-04-02 09:02 | P.OP_ITS ---
Operative Note Operative Note Date of Service: 04/02/24 Narrative: Procedure: Esophagogastroduodenoscopy Endoscopist: Bess Chavez MD Indication: Dyaphagia, GERD Anesthesia Provider: Shaista Harris DO Anesthesia Type: MAC ?? EGD Procedure:?? The procedure, indications, preparation and potential complications were reviewed with the patient, who indicated understanding and gave written informed consent to proceed. A physical exam was performed. The endoscope was introduced through the mouth, and advanced to the second part of duodenum. The mucosa was carefully examined on slow withdrawal of the endoscope. The patient tolerated the procedure well. There were no immediate complications.? ? EGD Findings:? * Esophagus:? Normal mucosa noted in the entire esophagus. The Z line was at 35 cm displaced by a small hiatal hernia with the diaphragmatic hiatus at 37 cm. Middle and lower esophagus forceps biopsies were obtained to rule out eosinophilic esophagitis. * Stomach:? Normal mucosa was noted in the stomach. Retroflexion was performed in the cardia that showed Hill grade 2 hiatal hernia. Random gastric biopsies were taken to rule out H Pylori infection. * Duodenum:? Normal mucosa was noted in the whole of the examined duodenum. Cold forceps biopsies were taken from duodenal bulb and second portion of the duodenum to rule out celiac sprue. Additional intervention: A soft tipped Savary wire was introduced through the biopsy channel and advanced to the antrum. A Savary Rosina bougie was advanced over the guidewire and the esophagus was dilated to 18 mm. On relook, there was a superficial tear at 18 cm. ? EGD Impressions:? * Cricopharyngeal stenosis (dilation) * Normal esophageal mucosa (biopsy) * Normal stomach (biopsy) * Normal duodenum (biopsy) ?? Recommendations:?? * Follow biopsy results. Our office will call or send a letter with results within 7-10 days. * If H pylori +, patient will be prescribed eradication therapy followed by test of cure. * Avoid NSAIDs. * Can repeat EGD p.r.n. for recurrence of symptoms Above has been reviewed with the patient.
[2024-04-02 09:22] VITALS: BP 100/58; PULSE 77; RESP 16; TEMP 36.2; O2SAT 97
--- NOTE | 2024-04-02 09:22 | HO.ANESPROP2 ---
PENDING SALE TO [facility] Active Problems Active Problems: All Active Problems Dysphagia (Acute) Status post laparoscopic cholecystectomy (Acute) Recurrent biliary colic (Acute) Snoring (Acute) Anxiety and depression (Acute) Family history of colon cancer (Acute) Disturbed sleep rhythm (Acute) Excessive daytime sleepiness (Acute) Mild intermittent asthma (Acute) Screening-pulmonary TB (Acute) Intermittent palpitations (Acute) Annual visit for general adult medical examination with abnormal findings (Acute) Impaired fasting glucose (Acute) Chronic heartburn (Acute) Morbid obesity (Acute) Past Medical History Medical History Cholelithiasis Anxiety and depression Family history of colon cancer Chest wall pain, chronic Disturbed sleep rhythm Excessive daytime sleepiness Mild intermittent asthma Nocturnal cough Screening-pulmonary TB Intermittent palpitations Annual visit for general adult medical examination with abnormal findings Impaired fasting glucose Mass of left side of neck Labial lesion Severe menstrual cramps Heavy menstrual bleeding Chronic heartburn Morbid obesity Difficulty concentrating Depression with anxiety Vitamin D deficiency Family History Family History Paternal Grandmother Diabetes mellitus Hypertension Maternal Grandfather Bronchial asthma Maternal Grandmother Colon cancer Paternal Aunt No problems noted. Mother Depression Mental health disorder Family history of problems with anesthesia: No Surgical History Surgical History History of laparoscopic cholecystectomy (06/07/23) History of wisdom tooth extraction History of Problems with Anesthesia: No Social History Social History Housing: Apartment Are you a primary elderly caregiver to a significant other at home: No Do you presently have visiting nurse or other home services: No Alcohol intake: former Comment: counts correct Patient Tobacco Use Status: Current everyday Tobacco user Tobacco use type: Smokeless Tobacco e-Cigarette/Vaping Use: Never Used Second Hand Smoke Exposure: No Use of substances other than those prescribed or required for medical reasons: Yes Substance Use Type: Marijuana Substance Use Frequency: Daily Have you been hit, kicked, punched, or otherwise hurt by someone within the past year? If so, by whom?: No Are you DNR?: No Advance Directives: No Advance Directives Information Provided: Yes Recently lost weight without trying: No Nutrition Risks: No Nutritional Risk Patient : No FDLMP: 03/17/24 service: No Current occupational status: unemployed Cognitive needs: No Hearing needs: No Vision needs: No Meds Allergies Allergy/AdvReac Type Severity Reaction Status Date / Time No Known Allergies Allergy Verified 04/02/24 08:04 Active Medications: Current Medications Lactated Ringer's (Lr) 1,000 mls @ 50 mls/hr IVCONT .Q20H ANDRADE Last Admin: 04/02/24 08:18 Dose: 50 mls/hr Naloxone HCl (Naloxone Hcl 0.4 Mg/Ml Vial) 0.04 mg IVPUSH Q5M PRN PRN Reason: Excessive sedation or RR < 8 Home Medications ?Medication ?Instructions ?Recorded ?Confirmed ?Last Taken ?Type cholecalciferol (vitamin D3) 125 125 mcg PO DAILY 09/12/20 04/02/24 Unknown History mcg (5,000 unit) capsule albuterol sulfate 90 mcg/actuation 2 inh inhalation Q4H PRN Shortness 02/13/23 04/02/24 Unknown History aerosol inhaler (Ventolin HFA) Of Breath Or Wheezing Exam Height,Weight and Vital Signs: Height 5 ft 2 in Weight 113.398 kg Last Vital Signs Temp 98.0 F 04/02/24 08:13 Pulse 79 04/02/24 08:13 Resp 16 04/02/24 08:13 BP 120/67 04/02/24 08:13 Pulse Ox 97 04/02/24 08:13 O2 Del Method Room Air 04/02/24 08:13 Pertinent Lab Results Pertinent Lab Results: Laboratory Tests 04/02/24 08:00 Urine Test NEGATIVE Airway Mallampati Class: I TM Dist: >3cm Neck ROM: Full Assessment and Plan Assessment Anesthesia Assessment: Anesthesia Plan Discussed and Chart Reviewed Final Anesthetic Review Family History of Problems with Anesthesia: No History of Problems with Anesthesia: No NPO: Yes ASA Class: III Final Preanesthetic Review: No Changes in Pt Med Stat, Meds/Allgs Chart Reviewed, Consent Obtained/Reviewed and Anes Risks/Benef Reviewed Patient Risk: Intermediate Procedure Risk: Low Anesthetic Plan Anesthetic Plan: TIVA Disposition: Standard PACU
[2024-04-02 09:37] VITALS: BP 118/78; PULSE 60; RESP 16; TEMP 36.2; O2SAT 97
== END 2024-04-02 09:53 | disposition home or self-care (01) ==
PROVIDERS: Anesthesiology; PCP Internal Medicine; Visit Provider Internal Medicine
PROC: (CPT 43248; principal; 2024-04-02 09:10)
DX: J39.2 Other diseases of pharynx (principal); K44.9 Diaphragmatic hernia without obstruction or gangrene; R13.10 Dysphagia, unspecified; K21.9 Gastro-esophageal reflux disease without esophagitis; J45.909 Unspecified asthma, uncomplicated; Z90.49 Acquired absence of other specified parts of digestive tract; Z87.891 Personal history of nicotine dependence
CPT/HCPCS: 43248; 43239; 81025; 88305; 88342; C1769; J2003; J2704

== ENCOUNTER → 2024-04-02 07:37 | Outpatient (BNV) | payer OTHER, SELFPAY | PROVIDERS: PCP Internal Medicine; Visit Provider Internal Medicine | DX: R13.10 Dysphagia, unspecified (principal); K21.9 Gastro-esophageal reflux disease without esophagitis; J39.2 Other diseases of pharynx | CPT/HCPCS: 43239; 43248 ==

== ENCOUNTER 2024-04-17 12:09 | Outpatient (AMB) | payer OTHER, SELFPAY ==
--- NOTE | 2024-04-17 12:11 | MHC.OFFVIS ---
Intake Visit Reasons: s/p egd dil Intake Note: Patient follow up for Chronic heartburn and EGD results Patient cc: acid reflex on and off, and some diarrhea. Denies any other GI issues for today visit. Administrative Assistant Front Desk Required: No Allergies No Known Allergies Allergy (Verified 04/17/24 12:11) HPI Comments Details: This is a 27y.o F with PMH of anxiety who is here for follow up. 05/14/23: Describes frequent retrosternal burning with sour brash triggered by seltzer water, milk, chips etc. Assoc with nausea and vomiting. Stools fluctuate between soft and constipation. No blood in stool. Cannabis occ. No etOH. Frequent ibuprofen 600-1200 mg per day 2-3 times week. Mat grandmother: colon ca at 51. Father: anal ca in early 40s US Abd 03/2023: Gallstones wiht mild GB wall thickness. Seeing surg this week. 08/14/23: Here for follow-up. Had lap sheela in June, doing well since then. Abdominal discomfort and bloating has resolved. Reports soft, symptoms loose bowel movements since the surgery which she understands is expected after cholecystectomy and may resolve down the olive. She has persistent occasional difficulty swallowing, with certain textures and foods. Has history of asthma. No eczema. No seasonal allergies. 04/02/24: EGD Cricopharyngeal stenosis (dilation) Normal esophageal mucosa (biopsy) Normal stomach (biopsy) Normal duodenum (biopsy) Path: A. Duodenum, biopsy: Duodenal mucosa with preserved villi and no specific change. B. Stomach, random, biopsy: Gastric antral and body mucosa with focal minimal chronic inactive inflammation; negative for H. pylori, intestinal metaplasia and dysplasia. C. Esophagus, lower, biopsy: Squamous epithelium with no specific change; no columnar mucosa present; no subepithelial tissue present for evaluation. D. Esophagus, middle, biopsy: Squamous epithelium with no specific change; no columnar mucosa present; no subepithelial tissue present for evaluation 04/17/24: Reports significant improvement in swallowing his dilation. Heartburn is better with omeprazole. Continues to have intermittent bloating and diarrhea specially diet related. To recall, patient is status post cholecystectomy. [facility] Medical History Cholelithiasis Anxiety and depression Family history of colon cancer Chest wall pain, chronic Disturbed sleep rhythm Excessive daytime sleepiness Mild intermittent asthma Nocturnal cough Screening-pulmonary TB Intermittent palpitations Annual visit for general adult medical examination with abnormal findings Impaired fasting glucose Mass of left side of neck Labial lesion Severe menstrual cramps Heavy menstrual bleeding Chronic heartburn Morbid obesity Difficulty concentrating Depression with anxiety Vitamin D deficiency Surgical History History of laparoscopic cholecystectomy (06/07/23) History of wisdom tooth extraction Family History Paternal Grandmother Diabetes mellitus Hypertension Maternal Grandfather Bronchial asthma Maternal Grandmother Colon cancer Paternal Aunt No problems noted. Mother Depression Mental health disorder Social History Housing: Apartment Are you a primary primary care coordinator to a significant other at home: No Do you presently have visiting nurse or other home services: No Alcohol intake: former Comment: counts correct Patient Tobacco Use Status: Current everyday Tobacco user Tobacco use type: Smokeless Tobacco e-Cigarette/Vaping Use: Never Used Second Hand Smoke Exposure: No Substance Use Type: Marijuana service: No Current occupational status: unemployed Cognitive needs: No Hearing needs: No Vision needs: No Female Reproductive History Menstrual Age of Menarche: 10 Review of Systems Const All systems reviewed & are unremarkable except as noted in HPI and below Physical Exam Vital Signs: Phone visit Telehealth Telehealth Telehealth Platform: Telephone Location of provider rendering services: practice address Location of patient: address on file Patient Identification confirmed using: Name, : Yes Telehealth method: voice only Patient verbally consented to treatment: Yes Patient verbally consented to billing insurance company: Yes Patient informed of any privacy concerns related to visit: Yes Minutes spent on Phone/Video with Pt.: 12 Assessment & Plan Assessment & Plan (1) Dysphagia: Code(s): R13.10 - Dysphagia, unspecified Category: Medical (2) Chronic heartburn: Code(s): R12 - Heartburn Category: Medical (3) Intermittent diarrhea: Code(s): R19.7 - Diarrhea, unspecified Category: Medical Plan Results of the endoscopy and pathology reviewed with the patient. Essentially normal. Patient reports improvement in swallowing since dilation. Encouraged to call us for recurrence of symptoms. In terms of intermittent abdominal bloating and diarrhea, patient identifies this with certain foods. Discussed avoiding triggers. Reviewed that if symptoms become more frequent, that is more than 2 to 3 times a week, can consider cholestyramine for bile acid diarrhea. She was also reminded to start colorectal cancer screening at 45 years of age. Follow-up as needed Coding Level of Care Code Tele Est Pt Level 4 (49928) Diagnoses Dysphagia R13.10 Chronic heartburn R12 Intermittent diarrhea R19.7
== END 2024-04-17 12:36 | disposition home or self-care (01) ==
LOC: HO.HGI 12:09
PROVIDERS: PCP Internal Medicine; Visit Provider Internal Medicine
DX: R13.10 Dysphagia, unspecified (principal); R12 Heartburn; R19.7 Diarrhea, unspecified
CPT/HCPCS: 99214

== ENCOUNTER → 2024-04-17 12:09 | Outpatient (BNVA) | payer OTHER, SELFPAY | PROVIDERS: PCP Internal Medicine; Visit Provider Internal Medicine ==

== ENCOUNTER 2024-07-29 10:31 | Outpatient (REF) | payer OTHER, SELFPAY ==
[2024-07-29 13:37] LABS: Estimated Average Glucose 111 mg/dL; Hemoglobin A1C 124.4444 umol/L; Hemoglobin A1c % 5.5 % (<6.0); Total Hemoglobin (HGBA1C) 3403.2966 umol/L
[2024-07-29 13:44] LABS: Hemoglobin 12.5 g/dl (12.0-16.0)
[2024-07-29 14:03] LABS: Cholesterol 143 mg/dL (<200); Glucose Fasting 102 mg/dL (60-99); HDL Cholesterol 47 mg/dL (>40); LDL Cholesterol Calculated 76 mg/dL (<100); Triglycerides 103 mg/dL (<150)
[2024-07-29 14:13] LABS: Vitamin D 25-OH Total 43.7 ng/mL (>30)
== END 2024-07-29 10:32 | disposition home or self-care (01) ==
LOC: HO.HMGCLDS 10:31
PROVIDERS: PCP Internal Medicine; Visit Provider Internal Medicine
DX: Z00.01 Encounter for general adult medical examination with abnormal findings (principal); G47.19 Other hypersomnia; J45.20 Mild intermittent asthma, uncomplicated; R00.2 Palpitations; R12 Heartburn; E66.01 Morbid (severe) obesity due to excess calories; R73.01 Impaired fasting glucose
CPT/HCPCS: 36415; 80061; 82306; 82947; 83036; 85014; 85018

== ENCOUNTER 2024-08-03 08:43 | Outpatient (AMB) | payer OTHER, SELFPAY ==
[2024-08-03 08:49] VITALS: BP 100/70; PULSE 63; RESP 16; TEMP 36.6; O2SAT 98; BMI 46.1
--- NOTE | 2024-08-03 08:49 | A.OFFPC_ITS ---
Vital Signs 08/03/24 08:49 Height 5 ft 2 in Weight 252 lb BMI 46.1 BP 100/70 Blood Pressure Location Rt brachial Position Sitting Respiration 16 Pulse 63 Pulse Source Pulse Oximeter Temp 97.9 F Temp Source Oral Pulse Oximetry (%) 98 Oxygen Delivery Method Room Air Intake Visit Reasons: PE Intake Note: Pt is here today for her PE: last papsmear 05/10/21 Is last menstrual period known: Yes Last menstrual period: 07/20/24 Allergies No Known Allergies Allergy (Verified 08/04/24 00:01) Medication List - Last Reconciled 08/04/24 by Faby Lam MD albuterol sulfate 90 mcg/actuation (Ventolin HFA) 2 inhalations inhalation Q4H PRN cholecalciferol (vitamin D3) 125 mcg PO DAILY omeprazole 20 mg PO DAILY Tobacco use date assessed: 08/03/24 Dental Screening Dental Screen Date: 08/03/24 Did you have a dental visit in the last 12 months?: Yes Did you have a dental problem in the last 6 months where you did not have access to dental care?: No Was dental information given to patient?: Patient has dentist HPI PE HPI Details 29-year-old lady here for her physical exam. She is up-to-date with her cervical cancer screening, last Pap smear done in 2021 with negative findings done at [facility]. She please also being seen for her heavy menstrual bleeding, no workups done yet She had an upper endoscopy done by Dr. 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 Has been trying to lose weight, but inconsistent with dieting and exercise. [facility] Medical History (Updated 08/04/24 @ 00:17 by Faby Lam MD) History of depression History of cholelithiasis Heavy menstrual bleeding Anxiety and depression Family history of colon cancer Disturbed sleep rhythm Excessive daytime sleepiness Mild intermittent asthma Intermittent palpitations Impaired fasting glucose Labial lesion Severe menstrual cramps Chronic heartburn Morbid obesity Vitamin D deficiency Surgical History (Updated 08/04/24 @ 00:17 by Faby Lam MD) Status post laparoscopic cholecystectomy History of laparoscopic cholecystectomy (06/07/23) History of wisdom tooth extraction Family History Paternal Grandmother Diabetes mellitus Hypertension Maternal Grandfather Bronchial asthma Maternal Grandmother Colon cancer Paternal Aunt No problems noted. Mother Depression Mental health disorder Social History Housing: Apartment Are you a primary rn wound care to a significant other at home: No Do you presently have visiting nurse or other home services: No Alcohol intake: former Comment: counts correct Patient Tobacco Use Status: Current everyday Tobacco user Tobacco use type: Smokeless Tobacco e-Cigarette/Vaping Use: Never Used Second Hand Smoke Exposure: No Substance Use Type: Marijuana service: No Current occupational status: unemployed Cognitive needs: No Hearing needs: No Vision needs: No Female Reproductive History Menstrual Age of Menarche: 10 Date of last menstrual period: 07/20/24 Questionnaire PHQ-9 Over the last 2 weeks, how often have you been bothered by any of the following problems? 1. Little interest or pleasure in doing things: not at all 2. Feeling down, depressed, or hopeless: not at all 3. Trouble falling or staying asleep, or sleeping too much: several days 4. Feeling tired or having little energy: several days 5. Poor appetite or overeating: several days 6. Feeling bad about yourself - or that you are a failure or have let yourself or your family down: several days 7. Trouble concentrating on things, such as reading the newspaper or watching television: not at all 8. Moving or speaking so slowly that other people could have noticed. Or the opposite - being so fidgety or restless that you have been moving around a lot more than usual: not at all 9. Thoughts that you would be better off or of hurting yourself in some way: not at all Total score: 4 Depression Screening Interpretation: Negative Depression Screening Done: Yes 21793 - PHQ-9 Billing: Yes Source: Developed by Drs. Andrew Hernandes, Valencia Mejia, Raghav Licea and colleagues, with an educational mihaela from [email or web address] Thrive Questionnaire Date Thrive assessed: 08/03/24 I am a: Patient What is your living situation today?: I have a steady place to live Within the past 12 months, did the food you bought not last and you didn't have the money to get more?: Never true Within the past 12 months, did you worry whether your food would run out before you got money to buy more?: Never true Do you have trouble paying for medicines?: No Do you have trouble getting transportation to medical appointments?: No Do you have trouble paying your heating and electricity bill?: No Do you have trouble taking care of your child, family member or friend?: No Do you have trouble with day-to-day activities such as bathing, preparing meals, shopping, managing finances, etc.?: No Are you currently unemployed and looking for a job?: Yes Are you interested in more education?: Yes Please select the resources that you would like help with: None Currently or been in a relationship where the following occur: No concerns reported THRIVE Score: 0 AUDIT C Alcohol Use Questionnaire (AUDIT-C) 1. How often do you have a drink containing alcohol?: Never 2. How many drinks containing alcohol do you have on a typical day when you are drinking?: 1 or 2 3. How often do you have six or more drinks on one occasion?: Never Total Score: 0 KIARA-7 AMB Questionnaire KIARA-7 Date KIARA - 7 assessed: 08/03/24 Feeling nervous, anxious, or on edge: 1 = Several days Not being able to stop or control worryin = Several days Worrying too much about different things: 1 = Several days Trouble relaxin = Several days Being so restless that it is hard to sit still: 0 = Not at all Becoming easily annoyed or irritable: 1 = Several days Feeling afraid as if something awful might happen: 1 = Several days Total KIARA-7 score (0-4 normal; 5-9 mild; 10-14 moderate; 15-21 severe): 6 Source: Developed by Drs. Andrew Hernandes, Valencia Mejia, Raghav Licea and colleagues, with an educational mihaela from [employer] KIARA-7 Assessment Billing KIARA-7 Assessment Tool: KIARA-7 Assessment 91128 Review of Systems Const Denies fatigue, Denies fever(s), Denies headache(s), Denies weakness and Denies weight loss Eyes Details: Has an appointment with her eye doctor already scheduled Reports blurry vision and Reports requires corrective lenses ENT Denies vertigo, Denies dizziness, Denies headache(s), Denies nasal congestion, Denies nasal discharge and Denies sore throat Card Denies chest pain, Denies lightheadedness, Denies palpitations and Denies dyspnea Resp Details: Has been seen for sleep study in the past with normal findings per patient Denies chest congestion, Denies cough, Denies dyspnea and Denies wheezing GI Denies melena, Denies bloating, Denies hematochezia and Denies nausea Denies urinary frequency, Denies dysuria and Denies urinary urgency Musc Reports no additional complaints Skin/Breast Denies breast pain, Denies breast mass and Denies rash Neuro Denies vertigo, Denies dizziness, Denies headache(s), Denies focal weakness, Denies seizure-like activity and Denies weakness Psych Reports no additional complaints Endo Denies fatigue, Denies polydipsia, Denies polyuria and Denies palpitations Rolan/Lymph Denies easy bruising Aller/Immun Denies seasonal rhinorrhea and Denies wheezing Physical exam (Primary Care) Vital Signs: Last Vital Signs Temp 97.9 F 08/03/24 08:49 Pulse 63 08/03/24 08:49 Resp 16 08/03/24 08:49 BP 100/70 08/03/24 08:49 Pulse Ox 98 08/03/24 08:49 Oxygen Delivery Method Room Air 08/03/24 08:49 BMI result Body Mass Index 46.1 Tobacco/Smoking Status: Tobacco use Status Tobacco use date assessed 08/03/24 08/03/24 09:01 Patient Tobacco Use Status Current everyday Tobacco 08/03/24 08:49 Tobacco use type Smokeless Tobacco 08/03/24 08:49 e-Cigarette/Vaping Use Never Used 08/03/24 08:49 PHQ-9: PHQ-9 Score PHQ-9: Total score 5 08/03/24 09:14 Depression Screening Interpretation: Negative Thrive Assessment: Date of Thrive Assessment Date Thrive assessed 08/03/24 08/03/24 09:01 Currently or been in a relationship where the following occur: No concerns reported Const Other: Obese, alert, oriented x3, no acute cardiorespiratory distress, ambulatory with normal gait General: cooperative, comfortable and no acute distress Nutritional Appearance: obese morbidly obese Orientation/consciousness: patient oriented x3 HENMT Head: Yes normocephalic Ears: hearing grossly normal bilaterally, external ears normal, TM's normal bilaterally and EAC's normal General nose exam: Normal external nose present Face and sinus: Yes face symmetric Mouth: Normal oral and palatal mucosa present, oropharynx normal and moist mucous membranes Eyes General: appearance normal, both eyes and all related structures Neck Neck: Yes full ROM, Yes no lymphadenopathy and Yes supple Thyroid: Thyroid normal Chest Chest palpation & inspection: normal inspection of the chest Breast/axilla palpation: normal palpation of the breasts Resp Effort & Inspection: normal respiratory effort and able to speak in complete sentences Auscultation: clear to auscultation bilaterally Cardio Rate: regular rate Rhythm: regular rhythm Heart sounds: S1 normal heart sound present and S2 normal heart sound present GI Inspection: Yes Abdominal panniculus present and Yes obesity Palpation (GI): Soft to palpation and no masses Auscultation: normal bowel sounds General: Yes no CVA tenderness and Yes deferred (Currently being seen by ELVIRA [place]) Back/Spine/Pelvis Back: no CVA tenderness and No back tenderness Skin General skin exam: no rashes or lesions noted Neuro General: patient oriented x3, gait normal, tone normal, moves all extremities and Normal light touch and pain sensation Cognition (Neuro): normal cognition Gait exam (Neuro): Normal gait present Extrem Other: Small nodular lesion on dorsal aspect of left wrist joint, nontender to palpation General: Yes normal to inspection, Yes full ROM, Yes no joint enlargement, Yes no clubbing, cyanosis or edema and Yes normal gait Psych Appearance: grossly normal and well kempt Mental Status: mental status grossly normal Speech and movement: Normal speech and movement present Affect: normal affect Attitude: cooperative Results Reviewed Results Reviewed: Laboratory Tests 07/29/24 10:35 Hgb 12.5 Hct 38.0 Estimat Average Glucose 111 Hemoglobin A1c % 5.5 Name: Camryn Martinez Age/Sex: 29/F : 1995 Unit#: [id number] Attend Dr: Faby Lam MD Re07/29/24 Status: DEP REF Location: [facility] [address] Disch: SPEC : [id number] EZRA: 07/29/24 STATUS: COMP REQ : [id number] RECD: 07/29/[address]: Faby Lam MD COMP: 07/29/24 ENTERED: 07/29/[address] [facility] [address]: ORDERED: Glu Fasting, Lipid Panel, Vitamin D 25-OH Test Result Flag Reference FBS 102 H 60-99 mg/dL A fasting glucose from 100-125 mg/dl is considered impaired (pre-diabetes). Triglyceride 103 <150 mg/dL Desirable Triglyceride: less than 150 mg/dL Borderline High Triglyceride 150-199 mg/dL High Triglyceride: 200-499 mg/dL Very High Triglyceride: greater than or equal to 5OO mg/dL Cholesterol 143 <200 mg/dL Desirable Cholesterol: less than 200 mg/dL Borderline High Cholesterol: 200-239 mg/dL High Cholesterol: greater than 239 mg/dL LDL Calculated 76 <100 mg/dL Desirable LDL: less than 100 mg/dL Near Optimal/Above Optimal LDL: 110-129 mg/dL Borderline High LDL: 130-159 mg/dL High LDL: 160-189 mg/dL Very High LDL: greater than or equal to 190 mg/dL HDL 47 >40 mg/dL Desirable HDL: greater than 40 mg/dL Note: This HDL assay may give artificially low results in patients with liver disease. Vitamin D 25-OH 43.7 >30 ng/mL Health Based Reference Values* < 20 ng/mL Deficient 20-30 ng/mL Insufficient > 30 ng/mL Sufficient c Coding Level of Care Code Est Pt Prev Care 18-39y(01757) Diagnoses Annual visit for general adult medical examination with abnormal findings Z00.01 Menorrhagia with regular cycle N92.0 Menorrhagia type: with regular cycle Screening for malignant neoplasm of cervix Z12.4 Chronic heartburn R12 Morbid obesity E66.01 Ganglion cyst of dorsum of left wrist M67.432 Additional Codes PHQ-9 - 54875 - PHQ-9 Billing: Yes ([id number]) KIARA-7 Assessment Billing - KIARA-7 Assessment Tool: KIARA-7 Assessment 78998 ([id number]) Assessment & Plan Assessment & Plan (1) Annual visit for general adult medical examination with abnormal findings: Code(s): Z00.01 - Encounter for general adult medical examination with abnormal findings Category: Medical Plan: Latest fasting labs showed normal lipids, no diabetes with hemoglobin A1c at 5.5 %. Recommended dental visit every 6 months and regular eye exams, at least every 2 years. Take adequate calcium in diet and vitamin-D 3 at 2000 IU per cap once a day, in addition to weight-bearing exercises to help maintain good muscle tone and weight control. Instructed to do self-breast exam, and recommended to get yearly mammogram, starting at age 40. Referred to [facility] for her routine Pap and pelvic exam. Up-to-date with her childhood vaccination, up-to-date with her Tdap, reminded to get her flu vaccine this year, declined getting COVID boosters. (2) Heavy menstrual bleeding: Code(s): N92.0 - Excessive and frequent menstruation with regular cycle Category: Medical Qualifiers: Menorrhagia type: with regular cycle Qualified Code(s): N92.0 - Excessive and frequent menstruation with regular cycle Plan: Ultrasound pelvic and transvaginal ordered. Reinforced importance of getting regular exercise, and adherence to healthy eating habits, to achieve weight loss. (3) Screening for malignant neoplasm of cervix: Code(s): Z12.4 - Encounter for screening for malignant neoplasm of cervix Plan: Referred to [facility] for her routine Pap and pelvic exam. (4) Chronic heartburn: Code(s): R12 - Heartburn Category: Medical Plan: Currently on omeprazole 40 mg daily, avoidance of triggers for heartburn (5) Morbid obesity: Code(s): E66.01 - Morbid (severe) obesity due to excess calories Category: Medical Plan: Stressed importance of adhering to healthy eating habits and regular exercise at least 30 minutes of moderate intensity exercise 3 to 4 times a week. Declines referral for bariatric counseling/surgery (6) Ganglion cyst of dorsum of left wrist: Code(s): M67.432 - Ganglion, left wrist Plan: No further treatment at present time, asymptomatic, no increase in size noted Orders: Orders US pelvic and transvaginal 08/03/24 N92.0 - Excessive and frequent menstruation with regular cycle Referrals [facility] Referral N92.0 - Excessive and frequent menstruation with regular cycle, Z12.4 - Encounter for screening for malignant neoplasm of cervix
== END 2024-08-03 09:27 | disposition home or self-care (01) ==
LOC: HO.HMCC 08:44
PROVIDERS: PCP Internal Medicine; Visit Provider Internal Medicine
DX: Z00.00 Encounter for general adult medical examination without abnormal findings (principal); E66.01 Morbid (severe) obesity due to excess calories; Z68.42 Body mass index [BMI] 45.0-49.9, adult; N92.0 Excessive and frequent menstruation with regular cycle; R12 Heartburn; M67.432 Ganglion, left wrist

== ENCOUNTER → 2024-08-03 08:43 | Outpatient (BNVA) | payer OTHER, SELFPAY | PROVIDERS: PCP Internal Medicine; Visit Provider Internal Medicine | DX: Z00.01 Encounter for general adult medical examination with abnormal findings (principal); N92.0 Excessive and frequent menstruation with regular cycle; R12 Heartburn; E66.01 Morbid (severe) obesity due to excess calories; Z68.42 Body mass index [BMI] 45.0-49.9, adult; M67.432 Ganglion, left wrist; Z79.899 Other long term (current) drug therapy | CPT/HCPCS: 96127; 99395 ==

== ENCOUNTER 2024-09-14 14:35 | Outpatient (REF) | payer OTHER, SELFPAY ==
--- NOTE | ~2024-09-14 | US_ITS ---
CLINICAL HISTORY: N92.0 - Excessive and frequent menstruation with regular cycle US pelvis transabdominal and transvaginal with Doppler Comparison: None Findings: Transabdominal scanning performed for overall anatomy. Transvaginal scanning performed for additional detail. Anteverted uterus is 7.6 cm length. Normal myometrium. Lower uterine segment cyst measuring 7 mm. Multiple nabothian cysts. Endometrium 8 mm thickness. Right ovary 2.8 x 2.3 x 2.1 cm. Left ovary 2.5 x 1.9 x 2.2 cm. Exophytic left ovarian cyst measuring 13 mm. Normal color Doppler with arterial/venous doppler limages of both ovaries. No free fluid. IMPRESSION: 1. Unremarkable pelvic ultrasound with no evidence of ovarian torsion. This document has been electronically signed by: Mavis Arteaga MD on 09/14/2024 17:40:12
== END 2024-09-14 14:36 | disposition home or self-care (01) ==
LOC: HO.HMGCX 14:35
PROVIDERS: PCP Internal Medicine; Visit Provider Internal Medicine
DX: N92.0 Excessive and frequent menstruation with regular cycle (principal)
CPT/HCPCS: 76830; 76856

== ENCOUNTER → 2024-09-14 14:37 | Outpatient (BNV) | payer OTHER, SELFPAY | PROVIDERS: PCP Internal Medicine; Visit Provider Radiology Diagnostic Radiology | DX: N92.0 Excessive and frequent menstruation with regular cycle (principal) | CPT/HCPCS: 76830; 76856 ==

== ENCOUNTER 2025-02-26 07:44 | Outpatient (AMB) | payer OTHER, SELFPAY ==
[2025-02-26 07:46] VITALS: BP 110/70; PULSE 70; TEMP 36.6; O2SAT 99; BMI 47.0
--- NOTE | 2025-02-26 07:46 | AM.OFFWIN_ITS ---
Intake Vital Signs 02/26/25 07:46 Height 5 ft 2 in Weight 257 lb BMI 47.0 BP 110/70 Blood Pressure Location Rt brachial Position Sitting Pulse 70 Pulse Source Pulse Oximeter Temp 98 F Temp Source Oral Pulse Oximetry (%) 99 Oxygen Delivery Method Room Air Intake Visit Reasons: EP Coughing up clear mucus bubbles 3 weeks Intake Note: Patient presents c/o coughing up clear mucous bubbles & irritated lungs x3 weeks. Patient Tobacco Use Status: Current everyday Tobacco user Allergies No Known Allergies Allergy (Verified 02/26/25 07:47) HPI HPI Comments History of Present Illness Details History - The patient is a 29 year old female wi th past med hx of asthma presenting with respiratory symptoms including cough and chest pressure x 2-3 weeks. - The patient reports a history of asthm a and has been experiencing increased respiratory symptoms for a couple of weeks, including coughing up clear mucus and chest pressure. - The patient has been using albuterol i nhaler with some relief and reports wheezing, particularly at night. - The patient denies fever, head congest ion, sinus pain, or ear pain, suggesting a viral etiology exacerbating the asthma. - The patient reports a history of aller gies and past episodes of strep throat, but no recent symptoms of sore throat or sinus tenderness. [facility] Medical History (Updated 02/26/25 @ 08:05 by Ally Antonio PA-C) History of depression History of cholelithiasis Heavy menstrual bleeding Anxiety and depression Family history of colon cancer Disturbed sleep rhythm Excessive daytime sleepiness Mild intermittent asthma Intermittent palpitations Impaired fasting glucose Labial lesion Severe menstrual cramps Chronic heartburn Morbid obesity Vitamin D deficiency Surgical History (Updated 08/04/24 @ 00:17 by Faby Lam MD) Status post laparoscopic cholecystectomy History of laparoscopic cholecystectomy (06/07/23) History of wisdom tooth extraction Family History Paternal Grandmother Diabetes mellitus Hypertension Maternal Grandfather Bronchial asthma Maternal Grandmother Colon cancer Paternal Aunt No problems noted. Mother Depression Mental health disorder Social History Housing: Apartment Are you a primary home care music therapist to a significant other at home: No Do you presently have visiting nurse or other home services: No Alcohol intake: former Comment: counts correct Patient Tobacco Use Status: Current everyday Tobacco user Tobacco use type: Smokeless Tobacco e-Cigarette/Vaping Use: Never Used Second Hand Smoke Exposure: No Substance Use Type: Marijuana service: No Current occupational status: unemployed Cognitive needs: No Hearing needs: No Vision needs: No Female Reproductive History Menstrual Age of Menarche: 10 Review of Systems Narrative Review of Systems - Respiratory: Reports cough with clear mucus, chest pressure, and wheezing at night. Denies hemoptysis or shortness of breath. - General: Denies fever. - ENT: Denies head congestion, sinus pain, ear pain, or sore throat. All systems reviewed and are unremarkable except as noted in HPI Physical Exam Exam Exam: Physical Exam General: Cooperative, healthy appearing, comfortable and no acute distress Orientation/consciousness: Patient oriented x3 Limitations: No limitations Head: Normal to inspection Ears: Hearing grossly normal bilaterally, external ears normal, EAC's normal bilaterally and TM's normal bilaterally Nose: Normal external nose present, Normal nares present and No nasal discharge present Face and sinus: Normal facial exam and sinuses nontender Mouth: Normal oral and palatal mucosa present and moist mucous membranes Throat: Tonsils hurt sometimes, no exudates, uvula midline, posterior oropharynx erythema Eyes: Appearance normal, both eyes and all related structures Neck: Normal visual inspection, full ROM Respiratory: slight wheezing left side, right side CTA. Normal respiratory effort, able to speak in complete sentences, actively coughing, no respiratory distress, not tachypneic, no tripod positioning and no use of accessory muscles. Cardiovascular: Regular rate and rhythm. Normal S1 and S2 Skin: No rashes or lesions noted Neuro: Patient oriented x3 Extremities: Normal to inspection and Yes no clubbing, cyanosis or edema Vital Signs: Last Vital Signs Temp 98 F 02/26/25 07:46 Pulse 70 02/26/25 07:46 BP 110/70 02/26/25 07:46 Pulse Ox 99 02/26/25 07:46 Oxygen Delivery Method Room Air 02/26/25 07:46 BMI result Body Mass Index 47.0 Assessment & Plan Assessment & Plan (1) URI, acute: Code(s): J06.9 - Acute upper respiratory infection, unspecified Plan Plan Patient was informed and verbally consented to the use of an ambient scribe for clinic note documentation during this visit. Mild Asthma Exacerbation 2/2 URI - VSS, pt well appearing and PE remarkable for wheeze on left side - Initiate a six-day steroid taper to reduce inflammation and improve breathing. - Recommend using a decongestant such as Sudafed to alleviate congestion and support mucus clearance. - Prescribed benzonatate for cough suppression to improve nighttime symptoms and sleep quality. - Advise symptomatic treatment as the infection is likely viral and should resolve within three weeks. Medications: New benzonatate 200 mg PO BEDTIME PRN 10 caps 0RF cough methylprednisolone PO PER PKG DIR for 6 days 21 ea 0RF Coding Level of Care Code Est Pt Level 3 (07716) Diagnoses URI, acute J06.9
== END 2025-02-26 08:12 | disposition home or self-care (01) ==
PROVIDERS: PCP Internal Medicine; Visit Provider Physician Assistant
DX: J06.9 Acute upper respiratory infection, unspecified (principal)

== ENCOUNTER → 2025-02-26 07:44 | Outpatient (BNVA) | payer OTHER, SELFPAY | PROVIDERS: PCP Internal Medicine; Visit Provider Physician Assistant | DX: J06.9 Acute upper respiratory infection, unspecified (principal); J45.901 Unspecified asthma with (acute) exacerbation; Z79.51 Long term (current) use of inhaled steroids | CPT/HCPCS: 99212 ==